=== PATIENT | female | born 1980 | race Caucasian/White ===

== ENCOUNTER 2016-08-12 18:25 | Emergency (ER) | payer OTHER ==
[~2016-08-12] VITALS: Ht 167.6 cm; Wt 61.2 kg
[~2016-08-12 18:25] MED LIST: ACET1TAB33 PO; IBUP200C PO; PRED20TA PO; SULF1TAB24 PO; TRAM50TA PO; imitrex
--- NOTE | 2016-08-12 18:27 | ED.ADGEN ---
Past History Past Medical History: Migraines Past Surgical History: Cholecystectomy, Tonsillectomy, Tubal ligation Smoking: Non-smoker Alcohol Use: None Drug Use: None Adult General Chief Complaint Chief Complaint " I hurting here on my Rt. side.. and around my umbilicus... and some discomfort here on Lt...." HPI HPI Patient is a 36 year old female who presents with above hx and complaints. No history of bad food. No history of travel. No history of trauma. Patient normally healthy. Patient has passed stool today.. Patient denies risks for STD or . No vaginal discharge. Nothing make her discomfort better. Review of Systems Review of Systems Constitutional: Denies fever or chills [] Eyes: Denies change in visual acuity, redness, or eye pain [] HENT: Denies nasal congestion or sore throat [] Respiratory: Denies cough or shortness of breath [] Cardiovascular: No additional information not addressed in HPI [] GI: Complaints of abdominal pain, nausea,. Denies vomiting, bloody stools or diarrhea [] : Denies dysuria or hematuria [] Musculoskeletal: Denies back pain or joint pain [] Integument: Denies rash or skin lesions [] Neurologic: Denies headache, focal weakness or sensory changes [] Endocrine: Denies polyuria or polydipsia [] Family History Family History Non-contributory Current Medications Current Medications Current Medications Medications (Trade) Dose Ordered Sig/Kade Start Time Stop Time Status Last Admin Dose Admin Ceftriaxone Sodium 1 gm/ Sodium Chloride 50 ml @ 100 mls/hr 1X ONCE 08/12/16 21:45 08/12/16 22:14 DC 08/12/16 21:45 100 MLS/HR Ceftriaxone Sodium (Rocephin) 1 gm STK-MED ONCE 08/12/16 21:48 08/12/16 21:49 DC Famotidine (Pepcid) 20 mg 1X ONCE 08/12/16 20:15 08/12/16 20:16 DC 08/12/16 20:10 20 MG Iohexol (Omnipaque 240 Mg/ml) 30 ml 1X ONCE 08/12/16 20:30 08/12/16 20:31 DC 08/12/16 21:37 30 ML Iohexol (Omnipaque 300 Mg/ml) 75 ml 1X ONCE 08/12/16 20:30 08/12/16 20:31 DC 08/12/16 21:37 75 ML Ketorolac Tromethamine (Toradol) 30 mg 1X ONCE 08/12/16 22:45 08/12/16 22:46 DC 08/12/16 22:45 30 MG Lactated Ringer's (Iv Lactated Ringers) 1,000 ml @ 1,000 mls/hr Q1H 08/12/16 20:15 08/12/16 20:50 1,000 MLS/HR Magnesium Citrate (Citroma) 296 ml 1X ONCE 08/12/16 22:45 08/12/16 22:46 DC 08/12/16 22:45 296 ML Metronidazole 100 ml @ 200 mls/hr 1X ONCE 08/12/16 22:00 08/12/16 22:29 DC 08/12/16 22:00 200 MLS/HR Morphine Sulfate (Morphine 10mg Syringe) 10 mg 1X ONCE 08/12/16 20:15 08/12/16 20:16 DC 08/12/16 20:09 10 MG Morphine Sulfate 10 mg 10 mg 1X ONCE 08/12/16 21:45 08/12/16 21:46 DC 08/12/16 21:44 10 MG Ondansetron HCl (Zofran) 8 mg 1X ONCE 08/12/16 20:15 08/12/16 20:16 DC 08/12/16 20:10 8 MG Sodium Chloride (Iv Sodium Chloride 0.9% 50ml) 50 ml @ As Directed STK-MED ONCE 08/12/16 21:48 08/12/16 21:49 DC See Nursing for home meds Allergies Allergies Allergies Coded Allergies Type Severity Reaction Last Updated Verified No Known Drug Allergies 08/08/14 No Physical Exam Physical Exam Constitutional: ,mild to moderate distress, non-toxic appearance. [] HENT: Normocephalic, atraumatic, bilateral external ears normal, oropharynx moist, no oral exudates, nose normal. [] Eyes: PERRLA, EOMI, conjunctiva normal, no discharge. [] Neck: Normal range of motion, no tenderness, supple, no stridor. [] Cardiovascular:Heart rate regular rhythm, no murmur [] Lungs & Thorax: Bilateral breath sounds clear to auscultation [] Abdomen: Bowel sounds decreased, soft, tita umbilical tenderness, no masses, no pulsatile masses. Distended. Pt. declined rectal and pelvic exam at this time. No true rebound. Old surgery scars. Skin: Warm, dry, no erythema, no rash. [] Back: No tenderness, no CVA tenderness. [] Extremities: No tenderness, no cyanosis, no clubbing, ROM intact, no edema. [] No psoas or heel tap. Neurologic: Alert and oriented X 3, normal motor function, normal sensory function, no focal deficits noted. [] Psychologic: Affect anxious, l, judgement normal, mood normal. [] Current Patient Data Vital Signs Vital Signs Date Time Temp Pulse Resp B/P Pulse Ox O2 Delivery O2 Flow Rate FiO2 08/12/16 21:45 90 20 132/82 98 08/12/16 21:44 Room Air 08/12/16 18:28 99.1 Lab Results Laboratory Tests Test 08/12/16 19:35 08/12/16 20:13 08/12/16 21:34 White Blood Count 8.6x10^3/uL (4.0-11.0) Red Blood Count 4.13x10^6/uL (3.50-5.40) Hemoglobin 12.3g/dL (12.0-15.5) Hematocrit 37.2% (36.0-47.0) Mean Corpuscular Volume 90fL (79-100) Mean Corpuscular Hemoglobin 30pg (25-35) Mean Corpuscular Hemoglobin Concent 33g/dL (31-37) Red Cell Distribution Width 12.5% (11.5-14.5) Platelet Count 228x10^3/uL (140-400) Neutrophils (%) (Auto) 56% (31-73) Lymphocytes (%) (Auto) 36% (24-48) Monocytes (%) (Auto) 6% (0-9) Eosinophils (%) (Auto) 2% (0-3) Basophils (%) (Auto) 1% (0-3) Neutrophils # (Auto) 4.8x10^3uL (1.8-7.7) Lymphocytes # (Auto) 3.1x10^3/uL (1.0-4.8) Monocytes # (Auto) 0.5x10^3/uL (0.0-1.1) Eosinophils # (Auto) 0.2x10^3/uL (0.0-0.7) Basophils # (Auto) 0.1x10^3/uL (0.0-0.2) Maternal Serum HCG Beta Subunit 1mIU/mL (0-6) Sodium Level 139mmol/L (136-145) Potassium Level 3.7mmol/L (3.5-5.1) Chloride Level 103mmol/L (98-107) Carbon Dioxide Level 29mmol/L (21-32) Anion Gap 7 (6-14) Blood Urea Nitrogen 12mg/dL (7-20) Creatinine 0.9mg/dL (0.6-1.0) Estimated GFR (Cockcroft-Gault) 70.1 Glucose Level 107mg/dL (70-99) H Calcium Level 9.6mg/dL (8.5-10.1) Total Bilirubin 0.5mg/dL (0.2-1.0) Direct Bilirubin 0.1mg/dL (0.0-0.2) Aspartate Amino Transferase (AST) 10U/L (15-37) L Alanine Aminotransferase (ALT) 15U/L (14-59) Alkaline Phosphatase 42U/L (46-116) L Total Protein 7.5g/dL (6.4-8.2) Albumin 3.9g/dL (3.4-5.0) Amylase Level 32U/L (25-115) Lipase 109U/L (73-393) Urine Collection Type Unknown Urine Color Yellow Urine Clarity Hazy Urine pH 5.0 Urine Specific Alfred 1.025 Urine Protein Neg (NEG-TRACE) Urine Glucose (UA) Negmg/dL (NEG) Urine Ketones (Stick) Tracemg/dL (NEG) Urine Blood Trace (NEG) Urine Nitrite Neg (NEG) Urine Bilirubin Neg (NEG) Urine Urobilinogen Dipstick 0.2mg/dL (0.2 mg/dL) Urine Leukocyte Esterase Trace (NEG) Urine RBC 0/HPF (0-2) Urine WBC 5-10/HPF (0-4) Urine Squamous Epithelial Cells Mod/LPF Urine Bacteria Few/HPF (0-FEW) Urine Yeast Present/HPF Urine Opiates Screen Neg (NEG) Urine Methadone Screen Neg (NEG) Urine Barbiturates Neg (NEG) Urine Phencyclidine Screen Neg (NEG) Urine Amphetamine/Methamphetamine Neg (NEG) Urine Benzodiazepines Screen Neg (NEG) Urine Cocaine Screen Neg (NEG) Urine Cannabinoids Screen Neg (NEG) Urine Ethyl Alcohol Neg (NEG) Prothrombin Time 10.7SEC (9.4-11.4) Prothrombin Time INR 1.0 (0.9-1.1) PTT 25SEC (23-33) EKG EKG [] Radiology/Procedures Radiology/Procedures Interpretation of abdomen film shows scoliosis. No free air under the diaphragm. Calcified nodes. Has stool in rectal vault [] CT shows no acute surgical findings. No significant free fluid or finding s of free air. No findings of inflammation. See formal report. Course & Med Decision Making Course & Med Decision Making Pertinent Labs and Imaging studies reviewed. (See chart for details). Stay on clear fluid diet only x 48 hrs . No solids or milk products. Clear fluids to allow bowel rest. Take Keflex 500 three times a day x 7 day. Then take diflucan 100 x thee days. Re-exam if no improvement. Tylenol and ibuprofen for pain. Expect some diarrhea and passage of stool with Mag. citrate. Follow up all labs and x-rays with primary. [] Final Impression Final Impression 1. Abdomen pain 2. Constipation 3. UTI [] Problems: Dragon Disclaimer Dragon Disclaimer This electronic medical record was generated, in whole or in part, using a voice recognition dictation system. DARIUS LAZO MD Aug 12, 2016 18:27
[2016-08-12] MEDS ORDERED: FAMOTIDINE 20 MG/2 ML VIAL IVP ONE (20:15)
[2016-08-12] MEDS ORDERED: ONDANSETRON PF 4 MG/2 ML VIAL. IV ONE (20:15)
[2016-08-12] MEDS ORDERED: IV RINGERS SOLUTION,LACTATED 1,000 ML IV SCH (20:15)
[2016-08-12] MEDS ORDERED: MORPHINE SULFATE 10 MG/ML SYRINGE. SQ ONE ×2 (20:15→21:45)
[2016-08-12 20:29] LABS: BASO # 0.1 x10^3/uL (0.0-0.2); BASO % 1 % (0-3); EOS # 0.2 x10^3/uL (0.0-0.7); EOS % 2 % (0-3); HEMATOCRIT 37.2 % (36.0-47.0); HEMOGLOBIN 12.3 g/dL (12.0-15.5); LYMPH # 3.1 x10^3/uL (1.0-4.8); LYMPH % 36 % (24-48); MEAN CORPUSCULAR HEMOGLOBIN 30 pg (25-35); MEAN CORPUSCULAR HGB CONC 33 g/dL (31-37); MEAN CORPUSCULAR VOLUME 90 fL (79-100); MONO # 0.5 x10^3/uL (0.0-1.1); MONO % 6 % (0-9); NEUT # 4.8 x10^3uL (1.8-7.7); NEUT % 56 % (31-73); PLATELET COUNT 228 x10^3/uL (140-400); RED BLOOD COUNT 4.13 x10^6/uL (3.50-5.40); RED CELL DISTRIBUTION WIDTH 12.5 % (11.5-14.5); WHITE BLOOD COUNT 8.6 x10^3/uL (4.0-11.0)
[2016-08-12] MEDS ORDERED: IOHEXOL 300 MG/ML 75 ML VIAL. IV ONE (20:30)
[2016-08-12] MEDS ORDERED: IOHEXOL 240 MG/ML 50ML VIAL. PO ONE (20:30)
[2016-08-12 20:33] LABS: ALBUMIN 3.9 g/dL (3.4-5.0); CALCIUM 9.6 mg/dL (8.5-10.1); CREATININE 0.9 mg/dL (0.6-1.0); DIRECT BILIRUBIN 0.1 mg/dL (0.0-0.2); GFR 70.1; POTASSIUM 3.7 mmol/L (3.5-5.1); TOTAL BILIRUBIN 0.5 mg/dL (0.2-1.0); TOTAL PROTEIN 7.5 g/dL (6.4-8.2)
[2016-08-12 20:38] LABS: AMPHETAMINE/METHAMPHETAMINE NEG (NEG); BARBITURATES NEG (NEG); BENZODIAZEPINES NEG (NEG); CANNABINOIDS NEG (NEG); COCAINE NEG (NEG); METHADONE NEG (NEG); OPIATES NEG (NEG); PHENCYCLIDINE NEG (NEG)
[2016-08-12 20:46] LABS: BILIRUBIN,URINE NEG (NEG); CLARITY,URINE HAZY; COLOR,URINE YELLOW; GLUCOSE,URINE NEG (NEG); NITRITE,URINE NEG (NEG); UROBILINOGEN,URINE 0.2 mg/dL (0.2 mg/dL)
[2016-08-12 20:47] LABS: RBC,URINE 0 /HPF (0-2)
[2016-08-12 20:50] LABS: BACTERIA,URINE FEW /HPF (0-FEW); SQUAMOUS EPITHELIAL CELL,UR MOD /LPF; YEAST,URINE PRESENT /HPF
[2016-08-12 21:45] VITALS: BP 132/82
[2016-08-12] MEDS ORDERED: CEFTRIAXONE SODIUM 1 GM in IV NORMAL SALINE 50ML 50 ML IV ONE (21:45)
[2016-08-12] MEDS ORDERED: CEFTRIAXONE SODIUM 1 GM VIAL IV ONE (21:48)
[2016-08-12] MEDS ORDERED: IV NORMAL SALINE 50ML 50 ML ONE (21:48)
[2016-08-12] MEDS ORDERED: METRONIDAZOLE 500mg PREMIX 100 ML IV ONE (22:00)
--- NOTE | 2016-08-12 22:07 | RAD ---
PROCEDURE CT abdomen pelvis with intravenous and oral contrast. HISTORY Severe left-sided abdominal pain. TECHNIQUE After administration of oral and intravenous contrast, 75 mL Omnipaque 300, CT of the abdomen and pelvis was performed. Exposure: One or more of the following individualized dose reduction techniques were utilized for this examination: 1. Automated exposure control. 2. Adjustment of the mA and/or kV according to patient size. 3. Use of iterative reconstruction technique. COMPARISON CT abdomen pelvis June 04, 2013. FINDINGS The left hepatic lobe demonstrates a few low density lesions, not adequately characterized on this examination. Spleen, pancreas, and bilateral adrenal glands unremarkable. Gallbladder is absent. Bilateral kidneys enhance symmetrically. No bowel obstruction or inflammation is identified. Appendix is without evidence of inflammation. Urinary bladder is unremarkable. Uterus and adnexa have unremarkable CT appearance. Levoconvex scoliosis of the spine is seen. IMPRESSION No acute abnormality identified in the abdomen or pelvis. Electronically signed by: Lavon Bajwa MD (Aug 12, 2016 22:05:32)
[2016-08-12] MEDS ORDERED: MAGNESIUM CITRATE 296 ML SOLUTION. PO ONE (22:45)
[2016-08-12] MEDS ORDERED: KETOROLAC 30 MG/ML VIAL. IV ONE (22:45)
[2016-08-12] MEDS ORDERED: FLUC100T7 PO (23:02)
[2016-08-12] MEDS ORDERED: ONDA8TAB12 PO (23:02)
[2016-08-12] MEDS ORDERED: CEPH-264 PO (23:02)
--- NOTE | 2016-08-13 07:56 | RAD ---
Indication: Left abdominal pain today. Technique: Abdominal series with PA chest radiograph contains 3 images. No comparison is available. Findings: The lungs are clear. Granulomatous disease is noted. The heart is not enlarged. S-shaped curvature of the thoracic and lumbar spine is noted. There is no free air. There is no dilated small bowel loop or air-fluid level. There is gas in the colon. There are calcified phleboliths. There are clips in the right upper quadrant. There are probably ligation clips in the pelvis. Impression: Nonobstructive bowel gas pattern. Scoliosis.
== END 2016-08-12 23:37 | disposition home or self-care (01) ==
LOC: ER 18:25
DX: K59.00 Constipation, unspecified (principal); R10.33 Periumbilical pain; N39.0 Urinary tract infection, site not specified; G43.909 Migraine, unspecified, not intractable, without status migrainosus; Z90.49 Acquired absence of other specified parts of digestive tract; Z98.51 Tubal ligation status
CPT/HCPCS: 36415; 74022; 74177; 80048; 80076; 81001; 82150; 83690; 84702; 85027; 85610; 85730; 87086; 96361; 96365; 96368; 96372; 96375; 99285; G0481; J0696; J1885; J2270; J2405; J3490; J7120; Q9966; Q9967; S0028

== ENCOUNTER 2016-09-09 13:07 | Emergency (ER) | payer OTHER ==
[~2016-09-09] VITALS: Ht 175.3 cm; Wt 63.5 kg
[~2016-09-09 13:07] MED LIST changes: +CEPH-264 PO; +FLUC100T7 PO; +ONDA8TAB12 PO
[2016-09-09] MEDS ORDERED: PRED20TA PO (14:17)
[2016-09-09] MEDS ORDERED: HYDR-971 PO (14:17)
[2016-09-09] MEDS ORDERED: ALBUTEROL SULFATE 8GM INHALER. INH ONE (14:30)
[2016-09-09] MEDS ORDERED: DIPHTH,PERTUSS(ACELL),TET TOX 0.5 ML DISP.SYRIN. VAX IM ONE (14:30)
[2016-09-09] MEDS ORDERED: PREDNISONE 20 MG TABLET PO ONE (14:30)
[2016-09-09 15:02] VITALS: BP 127/77
--- NOTE | 2016-09-09 15:35 | ED.ADGEN ---
Past History Past Medical History: No Pertinent History Past Surgical History: Cholecystectomy, Tonsillectomy, Other Smoking: Non-smoker Alcohol Use: Rarely Drug Use: None Adult General HPI HPI Patient is a 36-year-old female presents emergency department complaining of a burn to her left ankle that occurred 1.5 weeks ago after she fell asleep on top of a heating pad. She has been using antibiotic ointment to keep it covered. She comes in today because she keeps banging it into items at work causing significant pain. She also notes that she had a cough for the last 1 week that has been nonproductive. She denies any associated fever, chills, nausea, vomiting. Review of Systems Review of Systems Constitutional: Denies fever or chills [] Eyes: Denies change in visual acuity, redness, or eye pain [] HENT: Denies nasal congestion or sore throat [] Respiratory: Denies cough or shortness of breath [] Cardiovascular: No additional information not addressed in HPI [] GI: Denies abdominal pain, nausea, vomiting, bloody stools or diarrhea [] : Denies dysuria or hematuria [] Musculoskeletal: Denies back pain or joint pain [] Integument: Denies rash or skin lesions [] Neurologic: Denies headache, focal weakness or sensory changes [] Endocrine: Denies polyuria or polydipsia [] Current Medications Current Medications Current Medications Medications (Trade) Dose Ordered Sig/Kade Start Time Stop Time Status Last Admin Dose Admin Albuterol Sulfate (Ventolin Hfa) 2 puff 1X ONCE 09/09/16 14:30 09/09/16 14:31 DC Diphtheria/ Tetanus/Acell Pertussis (Boostrix) 0.5 ml ONCE ONCE 09/09/16 14:30 09/09/16 14:31 DC Prednisone (Prednisone) 60 mg 1X ONCE 09/09/16 14:30 09/09/16 14:31 DC Allergies Allergies Allergies Coded Allergies Type Severity Reaction Last Updated Verified No Known Drug Allergies 08/08/14 No Physical Exam Physical Exam Constitutional: Well developed, well nourished, no acute distress, non-toxic appearance. [] HENT: Normocephalic, atraumatic, bilateral external ears normal, oropharynx moist, no oral exudates, nose normal. [] Eyes: PERRLA, EOMI, conjunctiva normal, no discharge. [] Neck: Normal range of motion, no tenderness, supple, no stridor. [] Cardiovascular:Heart rate regular rhythm, no murmur [] Lungs & Thorax: Bilateral breath sounds with scattered wheezes Abdomen: Bowel sounds normal, soft, no tenderness, no masses, no pulsatile masses. [] Skin: Warm, dry, no erythema, no rash, 3x3 cm of well healing partial thickness burn without signs of infection. [] Extremities: No tenderness, no cyanosis, no clubbing, ROM intact, no edema. [] Neurologic: Alert and oriented X 3, normal motor function, normal sensory function, no focal deficits noted. [] Psychologic: Affect normal, judgement normal, mood normal. [] Current Patient Data Vital Signs Vital Signs Date Time Temp Pulse Resp B/P Pulse Ox O2 Delivery O2 Flow Rate FiO2 09/09/16 15:02 99.0 85 16 98 Room Air EKG EKG [] Radiology/Procedures Radiology/Procedures [] Course & Med Decision Making Course & Med Decision Making Pertinent Labs and Imaging studies reviewed. (See chart for details) Patient was given supportive care and follow-up instructions. While she was here we also did give her an MDI inhaler as well as a prescription for prednisone and [place]. [] Final Impression Final Impression Partial thickness burn, bronchitis [] Problems: Dragon Disclaimer Dragon Disclaimer This electronic medical record was generated, in whole or in part, using a voice recognition dictation system. CORTNEY FULLER MD Sep 09, 2016 15:34
== END 2016-09-09 15:05 | disposition home or self-care (01) ==
LOC: ER 13:07
DX: T25.012A Burn of unspecified degree of left ankle, initial encounter (principal); J40 Bronchitis, not specified as acute or chronic; X16.XXXA Contact with hot heating appliances, radiators and pipes, initial encounter; Y93.89 Activity, other specified; Y99.8 Other external cause status; Y92.89 Other specified places as the place of occurrence of the external cause
CPT/HCPCS: 94640; 99283; J7613; 94664

== ENCOUNTER → 2017-01-01 | Outpatient (CLI) | payer OTHER ==
[~2017-01-01] MED LIST changes: +HYDR-971 PO; -IBUP200C PO; +IBUP200C6 PO
--- NOTE | 2017-01-01 15:52 | RAD ---
DATE: 01/01/2017 EXAM: BREAST RIGHT, DIGITAL DIAGNOSTIC BILATERAL HISTORY: Palpable right breast lump. COMPARISON: Bilateral breast ultrasound 10/31/2013, bilateral diagnostic mammogram 11/30/2013. The breast parenchyma extremely dense. FINDINGS: Bilateral diagnostic mammogram: Bilateral digital 2-D CC and MLO views of both breasts and full-field ML and XCCL views of the right breast views. Breast density is extremely dense limiting evaluation. There are bilateral biopsy clips. No suspicious mass, calcification or architectural distortion. Patient will proceed to diagnostic right breast ultrasound in the area of palpable concern. Right breast ultrasound: In the area of palpable interest in 8:00 4 cm from the nipple, there are multiple cystic structures, the largest measuring 1.3 x 0.7 x 1.9 cm with a few thin internal septations and no internal blood flow. Immediately adjacent at 8:00 position 4 cm from the nipple there is an additional small cyst measuring up to 0.4 cm. No suspicious mass at the area of interest. IMPRESSION: In the area of palpable interest in the right breast 8:00 position 4 cm from the nipple, benign appearing cysts. BI-RADS CATEGORY: 2 BENIGN FINDING(S) RECOMMENDED FOLLOW-UP: CLIN FOLLOW UP IMAGING CLINICALLY INDICATED PQRS compliance statement: Patient information was entered into a reminder system with a target due date January 2019 for the next mammogram. Mammography is a sensitive method for finding small breast cancers, but it does not detect them all and is not a substitute for careful clinical examination. A negative mammogram does not negate a clinically suspicious finding and should not result in delay in biopsying a clinically suspicious abnormality. "Our facility is accredited by the [employer] Mammography Program."
== END | disposition home or self-care (01) ==
LOC: MAMMO 12:18
PROVIDERS: ATTEND Nurse Practitioner Family
DX: N63 Unspecified lump in breast (principal)
CPT/HCPCS: 76641; G0204; 77066

== ENCOUNTER 2017-06-08 07:38 | Emergency (ER) | payer OTHER ==
[~2017-06-08] VITALS: Ht 175.3 cm; Wt 61.2 kg
[2017-06-08 07:43] VITALS: BP 147/80
[2017-06-08] MEDS ORDERED: IV NORMAL SALINE 1,000ML 1,000 ML IV SCH (08:01)
[2017-06-08] MEDS ORDERED: IOHEXOL 240 MG/ML 50ML VIAL. ONE (08:07)
--- NOTE | 2017-06-08 08:07 | PHYS DOC ---
General Chief Complaint: ABDOMINAL PAIN Stated Complaint: UR ABDOM PAIN Time Seen by MD: 07:48 Source: patient Exam Limitations: no limitations Problems: History of Present Illness Initial Comments Patient is a 37-year-old female who comes in the department complaining of abdominal pain. Patient states that beginning last evening she developed right lower quadrant abdominal discomfort. She was not hungry and skipped dinner, her last reported by mouth intake is 1500 yesterday. She denies travel or exotic or" bad food, she states that the pain has worsened throughout the evening and describes that as sharp and stabbing the, severe, she says that she could feel it hitting bumps in the car on the way to the emergency department. No bowel changes last bowel movement was this morning described as normal. No fever or myalgias, no symptoms with urination. Patient takes Percocet chronically for knee pain, she is currently out of that medication. She says that hydrocodone and tramadol cause migraines and she can only take Percocet. Patient follows at [facility] and her ED vital signs are stable, she does not appear to be in any apparent distress. Timing/Duration: 24 hours Severity: moderate Modifying Factors: improves with other Associated Symptoms: other Allergies: Coded Allergies: No Known Drug Allergies (Unverified , 08/08/14) Past Medical History Medical History: other (chronic knee pain, ovarian cysts, peptic ulcer disease) Surgical History: cholecystectomy Social History Smoker: non-smoker Alcohol: none Drugs: none Review of Systems Constitutional: denies chills, denies diaphoresis, denies fever, denies malaise Respiratory: denies cough, denies shortness of breath Cardiovascular: denies chest pain, denies palpitations Gastrointestinal: see HPI, denies constipation, denies diarrhea, denies nausea , denies vomiting Genitourinary: denies discharge, denies dysuria, denies frequency, denies hematuria Musculoskeletal: see HPI, denies back pain, denies neck pain Psychiatric/Neurological: denies headache, denies numbness, denies paresthesia Physical Exam General Appearance: WD/WN, no apparent distress Ear, Nose, Throat: hearing grossly normal, normal ENT inspection, normal pharynx Neck: non-tender, supple Respiratory: normal breath sounds, no respiratory distress Cardiovascular: normal peripheral pulses, regular rate, rhythm Gastrointestinal: soft (nondistended, right lower quadrant tenderness without rebound guarding or palpable mass, bowel sounds are normal no epigastric or bilateral upper quadrant tenderness) Back: no CVA tenderness, no vertebral tenderness Extremities: non-tender, normal inspection 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 PHYSICIAN: LEVON CARPENTER DO REASON: RLQ pain, anorexia PROCEDURE: CT ABD PELV W/ORAL&IV CONTRAST CT scan of the abdomen with IV contrast: History: 2 days of right lower quadrant pain. Comparison:August 12, 2016. Procedure: Contiguous axial images of the abdomen and pelvis were performed after the administration of 75 cc of Omni 300 IV contrast and oral contrast. Findings: Liver: Prior cholecystectomy was seen previously. Minimally dilated intrahepatic biliary tree was seen previously. This also a tiny cyst in the left lobe of the liver. Spleen: Unremarkable. Pancreas: Unremarkable. Adrenal Glands: Unremarkable. Right Kidney: Unremarkable. Left Kidney: Unremarkable. Aorta: Normal. There is no mass or lymphadenopathy. There is no free air. There is no free fluid. CT of pelvis with contrast: The uterus appears within normal limits. The multiple follicles in the ovaries. The appendix is not well identified. There is a small amount of dense fluid posteriorly in the cul-de-sac on the right. Impression: Small amount of fluid in the cul-de-sac could be from a ruptured ovarian cyst. This assumes the patient is not . DICTATED AND SIGNED BY: ALYSSIA COHN III, MD DATE: 06/08/1731 CC: KAYLEIGH ANGLIN DO; LEVON CARPENTER DO ~ Departure Time of Disposition: 09:48 Disposition: 01 HOME, SELF-CARE Diagnosis: abdominal pain nonspecific Condition: GOOD Patient Instructions: Abdominal Pain (Nonspecific) Additional Instructions: Activity as tolerated today. Clear liquids, advance slowly as tolerated. [id number] Tylenol and ibuprofen as needed. Prescription: Dicyclomine, Zofran ODT Follow-up with your doctor on [facility] this week as needed. Return to ED with new or changing symptoms. LEVON CARPENTER DO Jun 08, 2017 08:07
[2017-06-08] MEDS ORDERED: MORPHINE SULFATE 4 MG/ML DISP.SYRIN. IV/SQ PRN (08:15)
[2017-06-08] MEDS ORDERED: IOHEXOL 300 MG/ML 75 ML VIAL. IV ONE (08:30)
[2017-06-08] MEDS ORDERED: ONDANSETRON PF 4 MG/2 ML VIAL. IV ONE (08:30)
[2017-06-08 08:47] LABS: BASO # 0.1 x10^3/uL (0.0-0.2); BASO % 1 % (0-3); EOS # 0.1 x10^3/uL (0.0-0.7); EOS % 3 % (0-3); HEMATOCRIT 42.9 % (36.0-47.0); HEMOGLOBIN 14.3 g/dL (12.0-15.5); LYMPH # 1.9 x10^3/uL (1.0-4.8); LYMPH % 33 % (24-48); MEAN CORPUSCULAR HEMOGLOBIN 30 pg (25-35); MEAN CORPUSCULAR HGB CONC 33 g/dL (31-37); MEAN CORPUSCULAR VOLUME 91 fL (79-100); MONO # 0.5 x10^3/uL (0.0-1.1); MONO % 8 % (0-9); NEUT # 3.2 x10^3uL (1.8-7.7); NEUT % 55 % (31-73); PLATELET COUNT 208 x10^3/uL (140-400); RED BLOOD COUNT 4.71 x10^6/uL (3.50-5.40); RED CELL DISTRIBUTION WIDTH 13.1 % (11.5-14.5); WHITE BLOOD COUNT 5.8 x10^3/uL (4.0-11.0)
[2017-06-08 08:59] LABS: ALBUMIN 4.1 g/dL (3.4-5.0); ALBUMIN/GLOBULIN RATIO 1.2 (1.0-1.7); CALCIUM 9.4 mg/dL (8.5-10.1); CREATININE 0.9 mg/dL (0.6-1.0); GFR 69.7; POTASSIUM 4.7 mmol/L (3.5-5.1); TOTAL BILIRUBIN 0.9 mg/dL (0.2-1.0); TOTAL PROTEIN 7.6 g/dL (6.4-8.2)
[2017-06-08 09:08] LABS: BILIRUBIN,URINE SMALL (NEG); CLARITY,URINE CLEAR; COLOR,URINE AMBER; GLUCOSE,URINE NEG (NEG); NITRITE,URINE NEG (NEG); RBC,URINE OCC /HPF (0-2); UROBILINOGEN,URINE 0.2 mg/dL (0.2 mg/dL); WBC,URINE OCC /HPF (0-4)
[2017-06-08 09:09] LABS: BARBITURATES NEG (NEG); BENZODIAZEPINES NEG (NEG); CANNABINOIDS NEG (NEG); COCAINE NEG (NEG); METHADONE NEG (NEG); OPIATES NEG (NEG); PHENCYCLIDINE NEG (NEG)
[2017-06-08 09:09] LABS: BACTERIA,URINE FEW /HPF (0-FEW); SQUAMOUS EPITHELIAL CELL,UR FEW /LPF; YEAST,URINE PRESENT /HPF
[2017-06-08 09:10] LABS: AMPHETAMINE/METHAMPHETAMINE NEG (NEG)
--- NOTE | 2017-06-08 09:41 | RAD ---
CT scan of the abdomen with IV contrast: History: 2 days of right lower quadrant pain. Comparison:August 12, 2016. Procedure: Contiguous axial images of the abdomen and pelvis were performed after the administration of 75 cc of Omni 300 IV contrast and oral contrast. Findings: Liver: Prior cholecystectomy was seen previously. Minimally dilated intrahepatic biliary tree was seen previously. This also a tiny cyst in the left lobe of the liver. Spleen: Unremarkable. Pancreas: Unremarkable. Adrenal Glands: Unremarkable. Right Kidney: Unremarkable. Left Kidney: Unremarkable. Aorta: Normal. There is no mass or lymphadenopathy. There is no free air. There is no free fluid. CT of pelvis with contrast: The uterus appears within normal limits. The multiple follicles in the ovaries. The appendix is not well identified. There is a small amount of dense fluid posteriorly in the cul-de-sac on the right. Impression: Small amount of fluid in the cul-de-sac could be from a ruptured ovarian cyst. This assumes the patient is not .
[2017-06-08] MEDS ORDERED: DICY20TA3 PO (09:48)
[2017-06-08] MEDS ORDERED: ONDA4TAB10 PO (09:48)
== END 2017-06-08 10:10 | disposition home or self-care (01) ==
LOC: ER 07:38
DX: R10.31 Right lower quadrant pain (principal); G89.29 Other chronic pain; Z87.11 Personal history of peptic ulcer disease; Z90.49 Acquired absence of other specified parts of digestive tract
CPT/HCPCS: 36415; 74177; 80053; 80307; 81001; 81025; 83690; 85025; 96361; 96374; 96375; 99285; J2270; J2405; Q9967; G0479; J7030

== ENCOUNTER 2017-12-13 12:32 | Emergency (ER) | payer OTHER ==
[~2017-12-13] VITALS: Ht 175.3 cm; Wt 60.3 kg
[~2017-12-13 12:32] MED LIST changes: +DICY20TA3 PO; +IBUP-1390 PO; -IBUP200C6 PO; +ONDA4TAB10 PO
[2017-12-13 13:00] VITALS: BP 140/73
[2017-12-13] MEDS ORDERED: KETOROLAC 60 MG/2 ML VIAL. IM ONE (13:30)
[2017-12-13] MEDS ORDERED: CYCL-331 PO (13:38)
[2017-12-13] MEDS ORDERED: OXYC-323 PO (13:38)
--- NOTE | 2017-12-13 13:38 | PHYS DOC ---
Past History Past Medical History: Other Additional Past Medical Histor: chronic pain Past Surgical History: Cholecystectomy, Tonsillectomy, Tubal ligation Smoking: Non-smoker Alcohol Use: Rarely Drug Use: None Adult General Chief Complaint Chief Complaint: LOWER EXT PAIN [facility] HPI 37-year-old female patient with history of chronic knee pain on Percocet states she went to [place] 4 days ago and had some bumpy rides and since yesterday has had pain in her neck, upper extremity, back and almost all over that gradually getting worse as a sharp pain and rated her pain 8/10. Patient denies focal neuro deficit, fever and chills, headache, nausea and vomiting, patient states states she usually gets Percocet twice a day but ran out of her medication for 5 days ago and unable to see her physician until of this month. Review of Systems Review of Systems Constitutional: Denies fever or chills [] Eyes: Denies change in visual acuity, redness, or eye pain [] HENT: Denies nasal congestion or sore throat [] Respiratory: Denies cough or shortness of breath [] Cardiovascular: No additional information not addressed in HPI [] GI: Denies abdominal pain, nausea, vomiting, bloody stools or diarrhea [] : Denies dysuria or hematuria [] Musculoskeletal: Reports myalgia, back pain, joint pain Integument: Denies rash or skin lesions [] Neurologic: Denies headache, focal weakness or sensory changes [] Endocrine: Denies polyuria or polydipsia [] All other systems were reviewed and found to be within normal limits, except as documented in this note. Current Medications Current Medications Current Medications Medications (Trade) Dose Ordered Sig/[facility] Start Time Stop Time Status Last Admin Dose Admin Ketorolac Tromethamine (Toradol) 60 mg 1X ONCE 12/13/17 13:30 12/13/17 13:31 Allergies Allergies Allergies Coded Allergies Type Severity Reaction Last Updated Verified hydrocodone Allergy Unknown 12/13/17 Yes tramadol Allergy Unknown 12/13/17 Yes Physical Exam Physical Exam Constitutional: Well developed, well nourished, mild distress, non-toxic appearance. [] HENT: Normocephalic, atraumatic, bilateral external ears normal, oropharynx moist, no oral exudates, nose normal. [] Eyes: PERRLA, EOMI, conjunctiva normal, no discharge. [] Neck: Normal range of motion, no tenderness, supple, no stridor, no surgical rigidity. [] Cardiovascular:Heart rate regular rhythm, no murmur [] Lungs & Thorax: Bilateral breath sounds clear to auscultation [] Abdomen: Bowel sounds normal, soft, no tenderness, no masses, no pulsatile masses. [] Skin: Warm, dry, no erythema, no rash. [] Back: No tenderness, no CVA tenderness. [] Extremities: No tenderness, no cyanosis, no clubbing, ROM intact, no edema. [] Neurologic: Alert and oriented X 3, normal motor function, normal sensory function, no focal deficits noted. [] Psychologic: Affect normal, judgement normal, mood normal. [] Current Patient Data Vital Signs Vital Signs Date Time Temp Pulse Resp B/P (MAP) Pulse Ox O2 Delivery O2 Flow Rate FiO2 12/13/17 13:00 98.3 71 20 98 Room Air EKG EKG [] Radiology/Procedures Radiology/Procedures [] Course & Med Decision Making Course & Med Decision Making Evaluation of patient in ER showed 37-year-old female patient with history of chronic back pain with increasing pain after sport activity. Patient had unremarkable physical exam of admitted with Toradol. Patient ran out of her chronic Percocet and plan to give few Percocet and recommendation to follow with her primary care physician in 2 days. Prescription for Percocet and Flexeril was given. Dragon Disclaimer Dragon Disclaimer This electronic medical record was generated, in whole or in part, using a voice recognition dictation system. Departure Departure: Impression: Primary Impression: Myalgia Additional Impression: Prescription refill Disposition: 01 HOME, SELF-CARE (at 1335) Condition: IMPROVED Referrals: KAYLEIGH ANGLIN DO (PCP) Patient Instructions: Medication Refill, Emergency Department, Myalgia, Adult Additional Instructions: Drink plenty of liquids Follow-up with your primary care physician in 2-3 days Return to ER if not getting better Apply ice on the affected area Scripts Oxycodone Hcl/Acetaminophen (PERCOCET 5-325 MG TABLET) 1 Each Tablet 1 TAB PO QID, #10 TAB Prov: BECKY MELARA MD 12/13/17 Cyclobenzaprine Hcl (CYCLOBENZAPRINE HCL) 10 Mg Tablet 1 TAB PO TID, #30 TAB Prov: BECKY MELARA MD 12/13/17 Problem Qualifiers BECKY MELARA MD Dec 13, 2017 13:38
== END 2017-12-13 13:44 | disposition home or self-care (01) ==
LOC: ER 12:32
DX: M79.1 Myalgia (principal); G89.29 Other chronic pain; Z76.0 Encounter for issue of repeat prescription; Z88.5 Allergy status to narcotic agent; Z88.6 Allergy status to analgesic agent
CPT/HCPCS: 96372; 99283; J1885

== ENCOUNTER 2018-06-05 06:55 | Emergency (ER) | payer OTHER ==
[~2018-06-05] VITALS: Ht 175.3 cm; Wt 58.1 kg
[~2018-06-05 06:55] MED LIST changes: +CYCL-331 PO; +HYDR-3165 PO; -HYDR-971 PO; +OXYC1TAB15 PO
[2018-06-05] MEDS ORDERED: ORPH-16 PO (07:35)
[2018-06-05] MEDS ORDERED: PRED20TA PO (07:35)
[2018-06-05] MEDS ORDERED: LIDO700A39 TP (07:35)
--- NOTE | 2018-06-05 07:35 | PHYS DOC ---
Past History Past Medical History: Migraines, Other Additional Past Medical Histor: chronic pain Past Surgical History: Cholecystectomy, Tonsillectomy, Tubal ligation Smoking: Non-smoker Alcohol Use: Rarely Drug Use: None Adult General Chief Complaint Chief Complaint: BACK PAIN - NO INJURY HPI HPI 38-year-old female presents with one-week history of low back pain. Patient denies loss of bowel or bladder. Denies known trauma. Denies dysuria or hematuria. Denies nausea or vomiting. Denies rash. Reports last menstrual period 2 weeks ago. Denies . Patient unsure how she might have injured her back. Reports some radiation to her buttocks. Reports pain worse with movement. Patient also reports increased anxiety. Reports her significant other recently . She has been having problems dealing with the . Reports is Friday. Denies suicidal or homicidal ideation. Review of Systems Review of Systems Constitutional: Denies fever or chills [ HENT: Denies nasal congestion or sore throat [] Respiratory: Denies cough or shortness of breath [] Cardiovascular: Denies chest pain or palpitations GI: Denies abdominal pain, nausea, vomiting, or diarrhea [] : Denies dysuria or hematuria [] Musculoskeletal: Reports back pain; denies joint pain [] Integument: Denies rash or skin lesions [] Neurologic: Denies headache, focal weakness or sensory changes Psychiatric: Reports anxiety; denies suicidal or homicidal ideation [] Complete systems were reviewed and found to be within normal limits, except as documented in this note. Allergies Allergies Allergies Coded Allergies Type Severity Reaction Last Updated Verified hydrocodone Allergy Unknown 12/13/17 Yes tramadol Allergy Unknown 12/13/17 Yes Physical Exam Physical Exam Constitutional: Well developed, well nourished, no acute distress, non-toxic appearance. [] HENT: Normocephalic, atraumatic Eyes: Conjunctiva normal, no discharge. [] Neck: Normal range of motion, no tenderness, supple Cardiovascular: Heart rate regular rhythm, no murmur [] Lungs & Thorax: Bilateral breath sounds clear to auscultation [] Abdomen: Soft, no tenderness Skin: Warm, dry, no erythema, no rash. [] Back: No midline tenderness, no CVA tenderness, tenderness noted bilaterally to paraspinal lumbar musculature. Extremities: No deformity, ROM intact, no edema, mild pain with straight leg raise bilaterally. Neurologic: Alert and oriented X 3, normal motor function, normal sensory function, no focal deficits noted. [] Psychologic: Patient tearful, judgement normal, denies suicidal or homicidal ideation EKG EKG [] Radiology/Procedures Radiology/Procedures [] Course & Med Decision Making Course & Med Decision Making Patient presents with atraumatic back pain which appears muscular skeletal in nature. No midline spinal tenderness noted. Denies hematuria or dysuria. No CVA tenderness noted. Symptomatic treatment provided with IM ketorolac, IM Norflex, and oral steroid. Patient has prescription for Percocet at home. Patient also given prescription for Lidoderm patches. Patient reports increased anxiety. Denies SI/HI. Rx given for 0.5mg ativan x 6 tabs. Patient stable for discharge with outpatient follow-up with PCP/pain management. Pain management referral provided. Discussed findings and plan with patient, who acknowledges understanding and agreement. Dragon Disclaimer Dragon Disclaimer This electronic medical record was generated, in whole or in part, using a voice recognition dictation system. Departure Departure: Impression: Primary Impression: Back pain Additional Impression: Anxiety Disposition: 01 HOME, SELF-CARE Condition: STABLE Referrals: KAYLEIGH ANGLIN DO (PCP) LOVE NOWAK MD Patient Instructions: Anxiety and Panic Attacks, [id number], Back Pain, Adult , [id number], Sciatica, [id number] Scripts Lorazepam (LORAZEPAM) 0.5 Mg Tablet 1 TAB PO TID PRN for ANXIETY, #6 TAB Prov: CONTRERAS CHUNG DO 06/05/18 Lidocaine (Lidocaine) 1 Each Adh..patch 1 EACH TP Q12HR PRN for PAIN, #6 PATCH Keep each patch on for 12 hours then leave off for 12 hours before replacing new patch. Prov: CONTRERAS CHUNG DO 06/05/18 Orphenadrine Citrate (ORPHENADRINE CITRATE) 100 Mg Tablet.er 1 TAB PO BID PRN for MUSCLE PAIN, #14 TAB 0 Refills Prov: CONTRERAS CHUNG DO 06/05/18 Prednisone (PREDNISONE) 20 Mg Tablet 2 TAB PO DAILY for Back pain, #8 TAB Start this prescription tomorrow 06/06/18 Prov: CONTRERAS CHUNG DO 06/05/18 Problem Qualifiers Primary Impression: Back pain Back pain location: low back pain Chronicity: acute Back pain laterality: bilateral Sciatica presence: with sciatica Sciatica laterality: bilateral sciatica Qualified Codes: M54.42 - Lumbago with sciatica, left side; M54.41 - Lumbago with sciatica, right side CONTRERAS CHUNG DO Jun 05, 2018 07:35
[2018-06-05] MEDS ORDERED: KETOROLAC 30 MG/ML VIAL. IM ONE (08:00)
[2018-06-05] MEDS ORDERED: ORPHENADRINE CITRATE 60 MG/2 ML VIAL. IM ONE (08:00)
[2018-06-05] MEDS ORDERED: DEXAMETHASONE 4 MG TABLET PO ONE (08:00)
[2018-06-05] MEDS ORDERED: LORA0.5T PO (08:15)
[2018-06-05 08:24] VITALS: BP 103/64
== END 2018-06-05 08:26 | disposition home or self-care (01) ==
LOC: ER 06:55
DX: M54.41 Lumbago with sciatica, right side (principal); M54.42 Lumbago with sciatica, left side; F41.9 Anxiety disorder, unspecified; G43.909 Migraine, unspecified, not intractable, without status migrainosus; G89.29 Other chronic pain; Z90.49 Acquired absence of other specified parts of digestive tract; Z98.51 Tubal ligation status; Z88.5 Allergy status to narcotic agent; Z88.6 Allergy status to analgesic agent
CPT/HCPCS: 96372; 99283; J1885; J2360; J8540

== ENCOUNTER 2018-12-14 07:06 | Emergency (ER) | payer OTHER ==
[~2018-12-14] VITALS: Ht 175.3 cm; Wt 52.2 kg
[~2018-12-14 07:06] MED LIST changes: +LIDO700A21 TP; +LORA0.5T PO; +ORPH-16 PO
[2018-12-14 07:19] VITALS: BP 132/87
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
[2018-12-14] MEDS ORDERED: IBUPROFEN 600 MG TABLET. PO ONE (07:50)
--- NOTE | 2018-12-14 07:55 | RAD ---
Indication: Injured at work. Hit lower anterior right burger TECHNIQUE: 2 views of the right tibia and fibula COMPARISON: None Findings/ impression: No acute fracture or dislocation. No soft tissue abnormality. Electronically signed by: César Castro DO (12/14/2018 7:52 AM) [facility]
[2018-12-14] MEDS ORDERED: ACETAMINOPHEN 500 MG TABLET PO ONE (08:15)
== END 2018-12-14 08:02 | disposition home or self-care (01) ==
LOC: ER 07:06
DX: S80.12XA Contusion of left lower leg, initial encounter (principal); G89.29 Other chronic pain; M54.5 Low back pain; Z88.5 Allergy status to narcotic agent; Z88.6 Allergy status to analgesic agent; Z90.49 Acquired absence of other specified parts of digestive tract; Z98.51 Tubal ligation status; W50.1XXA Accidental kick by another person, initial encounter; Y93.89 Activity, other specified; Y92.89 Other specified places as the place of occurrence of the external cause; Y99.8 Other external cause status
CPT/HCPCS: 73590; 99284

== ENCOUNTER 2018-12-27 12:01 | Emergency (ER) | payer OTHER ==
[~2018-12-27] VITALS: Ht 175.3 cm; Wt 54.4 kg
[2018-12-27 12:04] VITALS: BP 123/83
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
== END 2018-12-27 13:42 | disposition home or self-care (01) ==
LOC: ER 12:01
DX: S00.83XA Contusion of other part of head, initial encounter (principal); G89.29 Other chronic pain; Z88.5 Allergy status to narcotic agent; Z88.6 Allergy status to analgesic agent; W22.03XA Walked into furniture, initial encounter; Y93.89 Activity, other specified; Y92.89 Other specified places as the place of occurrence of the external cause; Y99.8 Other external cause status
CPT/HCPCS: 70140; 99284

== ENCOUNTER 2019-03-14 20:06 | Emergency (ER) | payer OTHER ==
[~2019-03-14] VITALS: Ht 175.3 cm; Wt 62.6 kg
--- NOTE | 2019-03-14 20:30 | ED.ADGEN ---
Past History Past Medical History: Anxiety, Arthritis, Migraines, Sciatica, Other Additional Past Medical Histor: chronic back pain, history of scoliosis Past Surgical History: Cholecystectomy, Tonsillectomy, Tubal ligation Smoking: Non-smoker Alcohol Use: None Drug Use: None Adult General Chief Complaint Chief Complaint ".. I am having a flare of my back pain.. I am out of my pain meds.. I ve had back pain ever since.. I was age 6.. I did a lot of gymnastic.. soft ball... I know I ve got scoliosis.. I really hurting tonight.. I am going see a new doc.. Danny Hua this coming week... " [facility] HPI Patient is a 39 year old female who presents with above hx and complaints of back pain.. Pain is localized in the lower half of thoracic and lumbar region.. Has obvious scoliosis. There is some paraspinal muscle spasms.. No history immunosuppression. No history of IV drug use. No history of recent trauma. No history of recent travel or specific contacts. Patient denies any history of cancer. Patient denies any problems with defecation or urination. No recent fever or chills. Patient is ambulatory. Reviewed radiographic findings of evaluation in 2013 showed moderate scoliosis no significant spinal stenosis. Patient recently had a repeat MRI at a [facility] on [facility]. Review of Systems Review of Systems Constitutional: Denies fever or chills [] Eyes: Denies change in visual acuity, redness, or eye pain [] HENT: Denies nasal congestion or sore throat [] Respiratory: Denies cough or shortness of breath [] Cardiovascular: No additional information not addressed in HPI [] GI: Denies abdominal pain, nausea, vomiting, bloody stools or diarrhea [] : Denies dysuria or hematuria [] Musculoskeletal: Complains of exacerbation of her chronic back pain Integument: Denies rash or skin lesions [] Neurologic: Denies headache, focal weakness or sensory changes [] Endocrine: Denies polyuria or polydipsia [] All other systems were reviewed and found to be within normal limits, except as documented in this note. Family History Family History Noncontributory Current Medications Current Medications Current Medications Medications (Trade) Dose Ordered Sig/Kade Start Time Stop Time Status Last Admin Dose Admin Ketorolac Tromethamine (Toradol Im) 60 mg 1X ONCE 03/14/19 22:00 03/14/19 22:01 DC 03/14/19 21:42 60 MG Methylprednisolone Acetate (DEPO-Medrol IM) 40 mg 1X ONCE 03/14/19 22:00 03/14/19 22:01 DC 03/14/19 21:42 40 MG Morphine Sulfate (Morphine 10mg Syringe) 10 mg 1X ONCE 03/14/19 22:00 03/14/19 22:01 DC 03/14/19 21:42 10 MG Orphenadrine Citrate (Norflex) 60 mg 1X ONCE 03/14/19 22:00 03/14/19 22:01 DC 03/14/19 21:42 60 MG See nursing for home medications Allergies Allergies Allergies Coded Allergies Type Severity Reaction Last Updated Verified hydrocodone Adverse Reaction Intermediate Bad migraine 03/14/19 Yes tramadol Adverse Reaction Unknown Bad migraine 03/14/19 Yes Physical Exam Physical Exam Constitutional: Moderate acute distress, non-toxic appearance. [] HENT: Normocephalic, atraumatic, bilateral external ears normal, oropharynx moist, no oral exudates, nose normal. [] Eyes: PERRLA, EOMI, conjunctiva normal, no discharge. [] Neck: Normal range of motion, no tenderness, supple, no stridor. [] Cardiovascular:Heart rate regular rhythm, no murmur [] Lungs & Thorax: Bilateral breath sounds equal at apexes auscultation []Scattered wheezes Abdomen: Bowel sounds normal, soft, no tenderness, no masses, no pulsatile masses. Old surgical scars. No obvious saddle loss. Patient declines rectal exam this time. Skin: Warm, dry, no erythema, has tinea versicolor on her back Back: Some paraspinal muscle spasm and tenderness, T6 down to L5. Obvious scoliosis. No midline tenderness on percussion of vertebral bodies. Has no CVA tenderness. [] Extremities: No tenderness, no cyanosis, no clubbing, ROM intact, no edema. [] Knee scars Neurologic: Alert and oriented X 3, normal motor function, normal sensory function, no focal deficits noted. []DTRs +2 patella and brachial. Does have some mild sciatica findings the on left side attic nerve root with straight leg lift. Psychologic: Affect anxious, judgement normal, mood depressed, tearful Current Patient Data Vital Signs Vital Signs Date Time Temp Pulse Resp B/P (MAP) Pulse Ox O2 Delivery O2 Flow Rate FiO2 03/14/19 21:52 72 16 131/83 (99) 98 Room Air 03/14/19 20:20 98.7 Lab Results Laboratory Tests Test 03/14/19 20:53 03/14/19 20:58 Urine Collection Type Unknown Urine Color Yellow Urine Clarity Hazy Urine pH 7.0 Urine Specific [place]farland 1.020 Urine Protein Neg (NEG-TRACE) Urine Glucose (UA) Neg mg/dL (NEG) Urine Ketones (Stick) Neg mg/dL (NEG) Urine Blood Mod (NEG) Urine Nitrite Neg (NEG) Urine Bilirubin Neg (NEG) Urine Urobilinogen Dipstick 0.2 mg/dL (0.2 mg/dL) Urine Leukocyte Esterase Neg (NEG) Urine RBC 1-2 /HPF (0-2) Urine WBC Occ /HPF (0-4) Urine Squamous Epithelial Cells Occ /LPF Urine Amorphous Sediment Present /HPF Urine Bacteria 0 /HPF (0-FEW) Urine Mucus Slight /LPF Urine Opiates Screen Neg (NEG) Urine Methadone Screen Neg (NEG) Urine Barbiturates Neg (NEG) Urine Phencyclidine Screen Neg (NEG) Urine Amphetamine/Methamphetamine Neg (NEG) Urine Benzodiazepines Screen Neg (NEG) Urine Cocaine Screen Neg (NEG) Urine Cannabinoids Screen Neg (NEG) Urine Ethyl Alcohol Neg (NEG) POC Urine HCG, Qualitative hcg negative (Negative) EKG EKG [] Radiology/Procedures Radiology/Procedures Reviewed findings of previous radiographic findings in 2013- unable to get res ults from the Diagnostic Center on [facility] at this time[] Course & Med Decision Making Course & Med Decision Making Pertinent Labs and Imaging studies reviewed. (See chart for details) Keep follow-up with your primary. Ice packs as needed. Consider physical therapy. If MRI showed significant changes in spine such as impingement or spinal stenosis consider neurosurgery consult. Take Tylenol and ibuprofen for pain. Take Flexeril 5 g 4 times a day. Consider the use of pain patches such as lidocaine or Voltran creams for localized pain relief. Use selenium shampoo, apply to rash, wash off in AM, Repeat 7 day. If min. response oral meds. [] Final Impression Final Impression 1. Exacerbation of chronic back pain 2. Scoliosis[] 3. Tinea versicolor Dragon Disclaimer Dragon Disclaimer This electronic medical record was generated, in whole or in part, using a voice recognition dictation system. Dragon Disclaimer This chart was dictated in whole or in part using Voice Recognition software in a busy, high-work load, and often noisy Emergency Department environment. It may contain unintended and wholly unrecognized errors or omissions. DARIUS LAZO MD Mar 14, 2019 20:30
[2019-03-14 21:20] LABS: BARBITURATES NEG (NEG); BENZODIAZEPINES NEG (NEG); CANNABINOIDS NEG (NEG); COCAINE NEG (NEG); METHADONE NEG (NEG); OPIATES NEG (NEG); PHENCYCLIDINE NEG (NEG)
[2019-03-14 21:21] LABS: BILIRUBIN,URINE NEG (NEG); CLARITY,URINE HAZY; COLOR,URINE YELLOW; GLUCOSE,URINE NEG (NEG); NITRITE,URINE NEG (NEG); UROBILINOGEN,URINE 0.2 mg/dL (0.2 mg/dL)
[2019-03-14 21:22] LABS: AMORPHOUS SEDIMENT,UR PRESENT /HPF; BACTERIA,URINE 0 /HPF (0-FEW); SQUAMOUS EPITHELIAL CELL,UR OCC /LPF; WBC,URINE OCC /HPF (0-4)
[2019-03-14 21:25] LABS: AMPHETAMINE/METHAMPHETAMINE NEG (NEG)
[2019-03-14] MEDS ORDERED: CYCL5TAB PO (21:45)
[2019-03-14] MEDS ORDERED: HYDR-1179 PO (21:45)
[2019-03-14] MEDS ORDERED: LIDO700A21 TP (21:45)
[2019-03-14 21:52] VITALS: BP 131/83
[2019-03-14] MEDS ORDERED: KETOROLAC 60 MG/2 ML VIAL. IM ONE (22:00)
[2019-03-14] MEDS ORDERED: methylPREDNISolone ACETATE 40 MG/ML VIAL. IM ONE (22:00)
[2019-03-14] MEDS ORDERED: MORPHINE SULFATE 10 MG/ML SYRINGE. SQ ONE (22:00)
[2019-03-14] MEDS ORDERED: ORPHENADRINE CITRATE 60 MG/2 ML VIAL. IM ONE (22:00)
== END 2019-03-14 22:03 | disposition home or self-care (01) ==
LOC: ER 20:06
DX: G89.29 Other chronic pain (principal); M41.86 Other forms of scoliosis, lumbar region; M41.84 Other forms of scoliosis, thoracic region; B36.0 Pityriasis versicolor; F41.9 Anxiety disorder, unspecified; M19.90 Unspecified osteoarthritis, unspecified site; G43.909 Migraine, unspecified, not intractable, without status migrainosus; Z90.49 Acquired absence of other specified parts of digestive tract; Z98.51 Tubal ligation status; Z88.5 Allergy status to narcotic agent; Z88.6 Allergy status to analgesic agent
CPT/HCPCS: 36415; 80307; 81001; 81025; 96372; 99284; J1030; J1885; J2270; J2360

== ENCOUNTER 2019-03-30 09:18 | Emergency (ER) | payer OTHER ==
[~2019-03-30 09:18] MED LIST changes: +CYCL5TAB PO; +HYDR-1179 PO
--- NOTE | 2019-03-30 09:53 | PHYS DOC ---
General Chief Complaint: BACK PAIN OR INJURY Stated Complaint: BACK PAIN Time Seen by MD: 09:26 Source: patient Exam Limitations: no limitations History of Present Illness Initial Comments Patient is a 39-year-old female with history of chronic back pain who presents with request of refill of pain medication. Patient states she ran out of Percocet one day ago and that her pain management doctor would not refill pain medication. Patient reports diffuse neck and upper and lower mid back pain as well as right knee pain. Patient is scheduled to see a new primary care physician next week. She has also currently participating in physical therapy. Denies new injury or pain complaint. States she's had a recent MRI of her spine has plans to follow-up with orthopedic surgery for her knee and neurosurgery for her back. Previous tubal ligation Timing/Duration: other Severity: moderate Prior Episodes/Possible Cause: frequent episodes, chronic episodes Modifying Factors: improves with activity Associated Symptoms: denies symptoms Allergies: Coded Allergies: hydrocodone (Verified Adverse Reaction, Intermediate, Bad migraine, 03/30/19) Bad migraine tramadol (Verified Adverse Reaction, Unknown, Bad migraine, 03/30/19) Bad migraine Past Medical History Medical History: no pertinent history Surgical History: cholecystectomy Social History Alcohol: sober Review of Systems Constitutional: no symptoms reported EENTM: no symptoms reported Respiratory: no symptoms reported Gastrointestinal: no symptoms reported Genitourinary: no symptoms reported Musculoskeletal: back pain Skin: no symptoms reported Psychiatric/Neurological: no symptoms reported Hematologic/Lymphatic: no symptoms reported Immunological/Allergic: no symptoms reported All Other Systems: Reviewed and Negative Physical Exam General Appearance: mild distress Eyes: bilateral eye normal inspection, bilateral eye PERRL, bilateral eye EOMI Ears, Nose, Throat: normal ENT inspection Neck: non-tender Respiratory: chest non-tender Cardiovascular: normal peripheral pulses Gastrointestinal: normal bowel sounds Extremities: normal range of motion Neurologic/Psychiatric: shaker tender II-XII nml as tested Comments Loss of thoracic kyphosis and straightening of the lumbar spine. Diffuse upper mid and low back pain/tenderness. Orders, Labs, Meds Chronic back pain. I discussed with patient that I was unable to fill narcotic pain medications. She is willing to trial steroids and Flexeril. Recommendation to follow up with her PCP for further management. JUNIOR BAHENA DO Mar 30, 2019 09:53
[2019-03-30] MEDS ORDERED: METH4TAB2 PO (09:55)
[2019-03-30] MEDS ORDERED: CYCL-331 PO (09:55)
[2019-03-30] MEDS ORDERED: ORPHENADRINE CITRATE 60 MG/2 ML VIAL. IM ONE (10:00)
[2019-03-30] MEDS ORDERED: KETOROLAC 60 MG/2 ML VIAL. IM ONE (10:00)
[2019-03-30 10:13] VITALS: BP 124/77
== END 2019-03-30 10:12 | disposition home or self-care (01) ==
LOC: ER 09:18
DX: G89.29 Other chronic pain (principal); M54.5 Low back pain; M54.2 Cervicalgia; M25.561 Pain in right knee; Z98.51 Tubal ligation status; Z90.49 Acquired absence of other specified parts of digestive tract; Z88.5 Allergy status to narcotic agent; Z88.6 Allergy status to analgesic agent
CPT/HCPCS: 96372; 99284; J1885; J2360

== ENCOUNTER 2019-06-02 19:40 | Emergency (ER) | payer OTHER ==
[~2019-06-02] VITALS: Ht 175.3 cm; Wt 65.0 kg
[~2019-06-02 19:40] MED LIST changes: +METH4TAB2 PO
--- NOTE | 2019-06-02 20:04 | PHYS DOC ---
Past History Past Medical History: Anxiety, Arthritis, Migraines, Sciatica, Other Additional Past Medical Histor: chronic back pain, history of scoliosis Past Surgical History: Cholecystectomy, Tonsillectomy, Tubal ligation Smoking: Non-smoker Alcohol Use: None Drug Use: None Adult General Chief Complaint Chief Complaint: HEADACHE.." This is like my regular migraine..s..but I let my Rx. run out that Dr. Schneider had me take for my occasional migraine headaches...."..." I need meds to make this pain completely go away".. HPI HPI Patient is a 39 year old female who presents with above hx and complaints of a migraine headache. Patient has had previous workup for her migraine headaches. Patient advised to previous CTs have been negative. Patient has followed with neurology Dr. Schneider and had used a migraine headache medication but she at the prescription run out. Patient states she has had Imitrex in the past here for her migraine headaches. Patient declines spinal tap or CT this time wants to be treated clinically. Patient did agree to blood draws. No history of fever or chills. No history of travel or specific ill contacts. No history of excessive celebration yesterday on new . Patient does have history of chronic pains syndromes/fibromyalgia. Patient is a in the company of her daughter. No history of recent trauma. Patient denies any illicit drug use. Patient states when her migraines persisted throughout the day she usually needs pain meds in the emergency department. Explained to patient we would not attempt to make her pain to "completely go away "...but could moderate her symptoms. Review of Systems Review of Systems Constitutional: Denies fever or chills [] Eyes: Denies change in visual acuity, redness, or eye pain []. Complains of photophobia HENT: Denies nasal congestion or sore throat [] Respiratory: Denies cough or shortness of breath [] Cardiovascular: No additional information not addressed in HPI [] GI: Denies abdominal pain, , vomiting, bloody stools or diarrhea []. Complaints of nausea : Denies dysuria or hematuria [] Musculoskeletal: Denies back pain or joint pain [] Integument: Denies rash or skin lesions [] Neurologic: Complaints of headache,. Denies focal weakness or sensory changes [] Endocrine: Denies polyuria or polydipsia [] All other systems were reviewed and found to be within normal limits, except as documented in this note. Family History Family History Noncontributory to presentation Current Medications Current Medications See nursing for home medications Allergies Allergies Allergies Coded Allergies Type Severity Reaction Last Updated Verified hydrocodone Adverse Reaction Intermediate Bad migraine 03/30/19 Yes tramadol Adverse Reaction Unknown Bad migraine 03/30/19 Yes Physical Exam Physical Exam Constitutional: Moderate acute distress, non-toxic appearance. [] HENT: Normocephalic, atraumatic, bilateral external ears normal, oropharynx moist, no oral exudates, nose normal. Scalp is tender to palpation. But no tem poral artery tenderness. Blue green hair dye Eyes: PERRLA, EOMI, conjunctiva normal, no discharge. .Wear glasses. . Fundus exam limited but benign in appearance. Does have photophobia to bright light. Myopia. Neck: Normal range of motion, no tenderness, supple, no stridor. [] Cardiovascular:Heart rate regular rhythm, no murmur [] Lungs & Thorax: Bilateral breath sounds equal apexes scattered wheezes on auscultation [] Abdomen: Bowel sounds normal, soft, no tenderness, no masses, no pulsatile masses. [] Old surgical scars Skin: Warm, dry, no erythema, no rash. [] Back: No tenderness, no CVA tenderness. []Patient does complain chronic low back pain and sciatica pain. Does have increased pain with straight leg lift both legs. Extremities: No tenderness, no cyanosis, no clubbing, ROM intact, no edema. [] Neurologic: Alert and oriented X 3, normal motor function, normal sensory function, no focal deficits noted. []DTRs +2 patella and brachial. [employer] equal. Right-hand dominant. No drift. [employer] Resource Project Manager equal. Ambulatory without problems. Psychologic: Affect anxious, judgement normal, mood normal. [] Current Patient Data Vital Signs Vital Signs Date Time Temp Pulse Resp B/P (MAP) Pulse Ox O2 Delivery O2 Flow Rate FiO2 06/02/19 19:53 98.2 84 16 99 Room Air 06/02/19 19:52 160/87 (111) EKG EKG [] Radiology/Procedures Radiology/Procedures Patient refuses CT[] Course & Med Decision Making Course & Med Decision Making Pertinent Labs and Imaging studies reviewed. (See chart for details) Patient do a trial of Imitrex 100 mg at the beginning of her migraine headaches. Recent take no more Imitrex in 200 mg in 24-hour period. Patient take Tylenol and ibuprofen for pain. Zofran 8 mg up 4 times a day for nausea and vomiting. Strongly encouraged patient to follow-up with neurology. Patient to return if an y concerns. Patient was discharged to the care of her daughter. Did explain to the patient risks and benefits of spinal tap. Patient continue refuse spinal tap and CT at this time. Patient return at any time completed further evaluation of her migraine h eadache, or if any concerns. Impression: 1. Migraine Headache 2. History of chronic pain-fibromyalgia 3. History of low back pain and sciatica-chronic 4. History of anxiety [] Dragon Disclaimer Dragon Disclaimer This electronic medical record was generated, in whole or in part, using a voice recognition dictation system. Departure Departure: Disposition: HOME/RESIDENCE PRIOR TO ADM Condition: STABLE Referrals: LEELA ESTEVEZ DO (PCP) Scripts Ondansetron Hcl (ZOFRAN) 8 Mg Tablet 8 MG PO QIDPRN PRN for pain, nausea, #30 BOTTLE Prov: DARIUS LAZO MD 06/02/19 Sumatriptan Succinate (IMITREX) 100 Mg Tablet 100 MG PO 1X for migrane, #10 TAB Prov: DARIUS LAZO MD 06/02/19 Dragon Disclaimer This chart was dictated in whole or in part using Voice Recognition software in a busy, high-work load, and often noisy Emergency Department environment. It may contain unintended and wholly unrecognized errors or omissions. DARIUS LAZO MD Jun 02, 2019 20:04
[2019-06-02] MEDS ORDERED: IV RINGERS SOLUTION,LACTATED 1,000 ML IV ONE (20:30)
[2019-06-02] MEDS ORDERED: ONDANSETRON PF 4 MG/2 ML VIAL. IVP ONE (20:30)
[2019-06-02] MEDS ORDERED: SUMAtriptan SUCC 6 MG/0.5 ML VIAL SQ ONE (20:30)
[2019-06-02] MEDS ORDERED: KETOROLAC 30 MG/ML VIAL. IVP ONE (20:30)
[2019-06-02] MEDS ORDERED: ONDA8TAB9 PO (20:35)
[2019-06-02] MEDS ORDERED: SUMA100T3 PO (20:35)
[2019-06-02 20:43] LABS: BASO # 0.1 x10^3/uL (0.0-0.2); BASO % 1 % (0-3); EOS # 0.2 x10^3/uL (0.0-0.7); EOS % 3 % (0-3); HEMATOCRIT 38.3 % (36.0-47.0); HEMOGLOBIN 12.8 g/dL (12.0-15.5); LYMPH # 3.1 x10^3/uL (1.0-4.8); LYMPH % 42 % (24-48); MEAN CORPUSCULAR HEMOGLOBIN 31 pg (25-35); MEAN CORPUSCULAR HGB CONC 33 g/dL (31-37); MEAN CORPUSCULAR VOLUME 93 fL (79-100); MONO # 0.5 x10^3/uL (0.0-1.1); MONO % 7 % (0-9); NEUT # 3.4 x10^3uL (1.8-7.7); NEUT % 46 % (31-73); PLATELET COUNT 214 x10^3/uL (140-400); RED BLOOD COUNT 4.11 x10^6/uL (3.50-5.40); RED CELL DISTRIBUTION WIDTH 13.2 % (11.5-14.5); WHITE BLOOD COUNT 7.4 x10^3/uL (4.0-11.0)
[2019-06-02 20:48] LABS: CALCIUM 8.3 mg/dL (8.5-10.1); CREATININE 0.8 mg/dL (0.6-1.0)
[2019-06-02 20:54] LABS: ALBUMIN 3.3 g/dL (3.4-5.0); TOTAL BILIRUBIN 0.3 mg/dL (0.2-1.0); TOTAL PROTEIN 6.6 g/dL (6.4-8.2)
[2019-06-02 21:01] VITALS: BP 131/89
[2019-06-02 21:28] LABS: AMPHETAMINE/METHAMPHETAMINE NEG (NEG); BARBITURATES NEG (NEG); BENZODIAZEPINES NEG (NEG); CANNABINOIDS NEG (NEG); COCAINE NEG (NEG); METHADONE NEG (NEG); OPIATES NEG (NEG); PHENCYCLIDINE NEG (NEG)
[2019-06-02 21:36] LABS: CLARITY,URINE HAZY; COLOR,URINE STRAW
[2019-06-02 21:37] LABS: BACTERIA,URINE MOD /HPF (0-FEW); BILIRUBIN,URINE NEG (NEG); GLUCOSE,URINE NEG (NEG); NITRITE,URINE NEG (NEG); SQUAMOUS EPITHELIAL CELL,UR OCC /LPF; UROBILINOGEN,URINE 0.2 mg/dL (0.2 mg/dL)
[2019-06-02] MEDS ORDERED: MORPHINE SULFATE 10 MG/ML SYRINGE. SQ ONE (21:45)
[2019-06-02 21:52] LABS: SEDIMENTATION RATE 6 (0-25)
[2019-06-02] MEDS ORDERED: PROCHLORPERAZINE 10 MG/2 ML VIAL. IV ONE (22:00)
[2019-06-02] MEDS ORDERED: diphenhydrAMINE 50 MG/ML VIAL IVP ONE (22:00)
== END 2019-06-02 21:56 | disposition home or self-care (01) ==
LOC: ER 19:40
DX: G43.909 Migraine, unspecified, not intractable, without status migrainosus (principal); G89.29 Other chronic pain; M79.7 Fibromyalgia; F41.9 Anxiety disorder, unspecified; M54.42 Lumbago with sciatica, left side; M19.90 Unspecified osteoarthritis, unspecified site; Z90.49 Acquired absence of other specified parts of digestive tract; Z98.51 Tubal ligation status; Z88.5 Allergy status to narcotic agent; Z88.6 Allergy status to analgesic agent
CPT/HCPCS: 36415; 80051; 80053; 80307; 81001; 81025; 85025; 85651; 87086; 96361; 96372; 96374; 96375; 99284; J0780; J1200; J1885; J2060; J2270; J2405; J3030; J7120

== ENCOUNTER 2020-01-28 19:38 | Emergency (ER) | payer OTHER ==
[~2020-01-28] VITALS: Ht 175.3 cm; Wt 65.0 kg
[~2020-01-28 19:38] MED LIST changes: +ONDA8TAB9 PO; +SUMA100T3 PO
[2020-01-28] MEDS ORDERED: oxyCODONE/APAP 5/325 1 TAB TABLET PO ONE (20:30)
--- NOTE | 2020-01-28 21:06 | RAD ---
Exam: Left knee 3 views INDICATION: Left knee injury TECHNIQUE: Frontal, lateral and oblique views of left knee Comparisons: None FINDINGS: Bone mineralization is normal. No acute or healed fractures. Soft tissues are unremarkable. Joint spaces are well-maintained. IMPRESSION: No acute osseous abnormality. Electronically signed by: Flakito Romero MD (01/28/2020 9:03 PM) [id number]
--- NOTE | 2020-01-28 21:11 | RAD ---
Exam: Lumbar spine 4 views INDICATION: Lower back pain TECHNIQUE: Frontal, lateral and lateral oblique views lumbar spine Comparisons: None FINDINGS: Vertebral body heights are well-maintained. There is a mild dextroconvex curvature of the lumbar spine. Mild bilateral facet arthropathy noted in the lower lumbar spine. Visualized soft tissues are unremarkable. IMPRESSION: Overall mild spondylotic changes lumbar spine as described above. Electronically signed by: Flakito Romero MD (01/28/2020 9:08 PM) [id number]
--- NOTE | 2020-01-28 21:20 | PHYS DOC ---
Past History Past Medical History: Anxiety, Arthritis, Migraines, Sciatica, Other Additional Past Medical Histor: chronic back pain, history of scoliosis Past Surgical History: Cholecystectomy, Tonsillectomy, Tubal ligation Smoking: Non-smoker Alcohol Use: None Drug Use: None General Adult EDM: Chief Complaint: BACK INJURY HPI: HPI: Patient is a 39-year-old female who presented to ER today for evaluation of left knee pain and low back pain. Patient says she was walking in her garage area and accidentally bumped her left knee again the wall and somehow hurt her back in the process. Patient has history of chronic back problem. Patient denies any bowel bladder incontinence, no fever, no cough, no abdominal pain, no nausea vomiting. Review of Systems: Review of Systems: Constitutional: Denies fever or chills Eyes: Denies change in visual acuity HENT: Denies nasal congestion or sore throat Respiratory: Denies cough or shortness of breath Cardiovascular: Denies chest pain or edema GI: Denies abdominal pain, nausea, vomiting, bloody stools or diarrhea : Denies dysuria Musculoskeletal: Positive for left knee pain, low back pain. Integument: Denies rash Neurologic: Denies headache, focal weakness or sensory changes Endocrine: Denies polyuria or polydipsia Lymphatic: Denies swollen glands Psychiatric: Denies depression or anxiety Heart Score: Risk Factors: Risk Factors: DM, Current or recent (<one month) smoker, HTN, HLP, family history of CAD, obesity. Risk Scores: Score 0 - 3: 2.5% MACE over next 6 weeks - Discharge Home Score 4 - 6: 20.3% MACE over next 6 weeks - Admit for Clinical Observation Score 7 - 10: 72.7% MACE over next 6 weeks - Early Invasive Strategies Current Medications: Current Meds: Current Medications Medications (Trade) Dose Ordered Sig/[facility] Start Time Stop Time Status Last Admin Dose Admin Oxycodone/ Acetaminophen (Percocet 5/325) 1 tab 1X ONCE 01/28/20 20:30 01/28/20 20:31 DC 01/28/20 20:41 1 TAB Allergies: Allergies: Allergies Coded Allergies Type Severity Reaction Last Updated Verified hydrocodone Adverse Reaction Intermediate Bad migraine 03/30/19 Yes tramadol Adverse Reaction Unknown Bad migraine 03/30/19 Yes Physical Exam: PE: Constitutional: Well developed, well nourished, no acute distress, non-toxic appearance. [] HENT: Normocephalic, atraumatic, bilateral external ears normal, oropharynx moist, no oral exudates, nose normal. [] Eyes: PERRLA, EOMI, conjunctiva normal, no discharge. [] Neck: Normal range of motion, no tenderness, supple, no stridor. [] Cardiovascular:Heart rate regular rhythm, no murmur [] Lungs & Thorax: Bilateral breath sounds clear to auscultation [] Abdomen: Bowel sounds normal, soft, no tenderness, no masses, no pulsatile masses. [] Skin: Warm, dry, no erythema, no rash. [] Back: No tenderness, no CVA tenderness. [] Extremities: There is tenderness to palpation on the left anterior knee area, left knee joint is stable. There is no open wound. Neurologic: Alert and oriented X 3, normal motor function, normal sensory function, no focal deficits noted. [] Psychologic: Affect normal, judgement normal, mood normal. [] Current Patient Data: Vital Signs: Vital Signs Date Time Temp Pulse Resp B/P (MAP) Pulse Ox O2 Delivery O2 Flow Rate FiO2 01/28/20 19:51 98.1 78 18 137/74 (95) 98 Room Air EKG: EKG: [] Radiology/Procedures: Radiology/Procedures: [][address] [address] IMAGING REPORT Signed PATIENT: TERRY BELTRÁN ACCOUNT: [id number] : 1980 LOCATION: ER AGE: 39 SEX: F EXAM STATUS: REG ER ORD. PHYSICIAN: NURYS MALIK DO REASON: lower back pain PROCEDURE: LUMBAR SPINE MIN 4V Exam: Lumbar spine 4 views INDICATION: Lower back pain TECHNIQUE: Frontal, lateral and lateral oblique views lumbar spine Comparisons: None FINDINGS: Vertebral body heights are well-maintained. There is a mild dextroconvex curvature of the lumbar spine. Mild bilateral facet arthropathy noted in the lower lumbar spine. Visualized soft tissues are unremarkable. IMPRESSION: Overall mild spondylotic changes lumbar spine as described above. Electronically signed by: Flakito Hedrick MD (01/28/2020 9:08 PM) [id number] DICTATED AND SIGNED BY: FLAKITO HEDRICK MD DATE: 01/28/202107 CC: NURYS MALIK DO; LEELA ESTEVEZ DO ~ [address] [address] IMAGING REPORT Signed PATIENT: TERRY BELTRÁN ACCOUNT: [id number] : 1980 LOCATION: ER AGE: 39 SEX: F EXAM STATUS: REG ER ORD. PHYSICIAN: NURYS MALIK DO REASON: left knee injury PROCEDURE: KNEE LEFT 3V Exam: Left knee 3 views INDICATION: Left knee injury TECHNIQUE: Frontal, lateral and oblique views of left knee Comparisons: None FINDINGS: Bone mineralization is normal. No acute or healed fractures. Soft tissues are unremarkable. Joint spaces are well-maintained. IMPRESSION: No acute osseous abnormality. Electronically signed by: Flakito Hedrick MD (01/28/2020 9:03 PM) [id number] DICTATED AND SIGNED BY: FLAKITO HEDRICK MD DATE: 01/28/202102 CC: NURYS MALIK DO; LEELA ESTEVEZ DO ~ Course & Med Decision Making: Course & Med Decision Making Pertinent Labs and Imaging studies reviewed. (See chart for details) [] Dragon Disclaimer: Dragon Disclaimer: This electronic medical record was generated, in whole or in part, using a voice recognition dictation system. Departure Departure: Impression: Primary Impression: Lower back pain Additional Impression: Contusion of knee, left Disposition: 01 HOME/RESIDENCE PRIOR TO ADM Condition: STABLE Referrals: LEELA ESTEVEZ DO (PCP) please call your family doctor for follow up. Patient Instructions: Back Pain, Adult, Contusion Additional Instructions: Thank you for visiting our Emergency Department. We appreciate you trusting us with your care. If any additional problems come up don't hesitate to return to visit us. Please follow up with your primary care provider so they can plan additional care if needed and know about the problem that you had. If symptoms worsen come back to the Emergency Department. Any concerning symptoms that start such as chest pain, shortness of air, weakness or numbness on one side of the body, running high fevers or any other concerning symptoms return to the ER. Scripts Oxycodone HCl/Acetaminophen (Percocet 5-325 mg Tablet) 1 Each Tablet 1 TAB PO PRN TID PRN for PAIN MDD 3 Tablet(s) for 3 Days, #10 TAB 0 Refills Prov: NURYS MALIK DO 01/28/20 Naproxen Sodium (ANAPROX DS) 550 Mg Tablet 1 TAB PO BID PRN for PAIN for 15 Days, #30 TAB 0 Refills Prov: NURYS MALIK DO 01/28/20 Justification of Admission: Justification of Admission: Justification of Admission Dx: N/A NURYS MALIK DO Jan 28, 2020 21:20
[2020-01-28] MEDS ORDERED: NAPR-682 PO (21:32)
[2020-01-28] MEDS ORDERED: OXYC-325 PO (21:32)
== END 2020-01-28 21:40 | disposition home or self-care (01) ==
LOC: ER 19:38
DX: S80.02XA Contusion of left knee, initial encounter (principal); M54.5 Low back pain; F41.9 Anxiety disorder, unspecified; M19.90 Unspecified osteoarthritis, unspecified site; G43.909 Migraine, unspecified, not intractable, without status migrainosus; G89.29 Other chronic pain; Z90.89 Acquired absence of other organs; Z98.51 Tubal ligation status; Z88.5 Allergy status to narcotic agent; Z88.6 Allergy status to analgesic agent; W22.01XA Walked into wall, initial encounter; Y93.01 Activity, walking, marching and hiking; Y92.59 Other trade areas as the place of occurrence of the external cause; Y99.8 Other external cause status
CPT/HCPCS: 72110; 73562; 99284

== ENCOUNTER 2020-03-10 16:41 | Emergency (ER) | payer OTHER ==
[~2020-03-10] VITALS: Ht 175.3 cm; Wt 65.0 kg
[~2020-03-10 16:41] MED LIST changes: +NAPR-682 PO; +OXYC-325 PO
--- NOTE | 2020-03-10 17:27 | RAD ---
Three-view bilateral knee dated 03/10/2020. No comparison available. Clinical data indication: Pain. FINDINGS: Three-view bilateral knee show normal bony alignment. No displaced fracture. No periostitis or bone destruction. No apparent joint effusion or loose body. IMPRESSION: No acute findings. Electronically signed by: Lavon Clayton MD (03/10/2020 5:23 PM) POOL
[2020-03-10] MEDS ORDERED: MORPHINE SULFATE 10 MG/ML SYRINGE. SQ ONE (17:45)
--- NOTE | 2020-03-10 18:34 | RAD ---
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 Instructions: / History: . Comparison: No comparison is available. Technique: Contiguous axial imaging of lumbar spine performed with thin cut coronal and sagittal reconstruction. One or more of the following individualized dose reduction techniques were utilized for this examination: 1. Automated exposure control 2. Adjustment of the mA and/or kV according to patient size 3. Use of iterative reconstruction technique. FINDINGS: There is mild levoconvex scoliotic curvature. Sagittal alignment is anatomic. Vertebral body heights are maintained. Posterior elements are intact. No evidence of fracture. There is minimal broad-based bulging at L2-L3, L3-L4 and L4-L5. Mild hypertrophic change of the lower lumbar apophyseal joints. The bony canal and foramina appear adequate. Images of the retroperitoneum show no significant abnormality. The gallbladder is surgically absent. Small bilateral ovarian cysts measuring about 1.7 cm each. No free fluid. Limited images of lung bases are clear. IMPRESSION: 1. No acute bony or soft tissue abnormality. 2. Mild lower lumbar spondylosis with mild levoconvex scoliotic curvature. Electronically signed by: Lavon Clayton MD (03/10/2020 6:31 PM) [facility]
--- NOTE | 2020-03-10 18:46 | PHYS DOC ---
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 and hurt my knee and back after a run last week.. I ve not gotten better since 3 weeks. ago.." Patient is a 40 year old female who presents with above hx of bilateral knee medial ligament and lumbar area injury. Patient localizes pain to bilateral medial knee areas. A positive straight leg lift. Does have tenderness over medial collateral ligament. Patient also complaining of lumbar sacral back pain. Does have findings of muscle spasm lumbar sacral area. Some radiation down right sciatic nerve. Straight leg lift does seem to exacerbate low back pain. Radiation no suppression. No history of fevers. No history of IV drug use. No history of problems with defecation or urination. Review of Systems: Review of Systems: Constitutional: Denies fever or chills Eyes: Denies change in visual acuity HENT: Denies nasal congestion or sore throat Respiratory: Denies cough or shortness of breath Cardiovascular: Denies chest pain or edema GI: Denies abdominal pain, nausea, vomiting, bloody stools or diarrhea : Denies dysuria Musculoskeletal: Complains of lumbar sacral back pain. Complains of bilateral knee pain Integument: Denies rash Neurologic: Denies headache, focal weakness or sensory changes Endocrine: Denies polyuria or polydipsia Lymphatic: Denies swollen glands Psychiatric: Denies depression or anxiety Heart Score: Risk Factors: Risk Factors: DM, Current or recent (<one month) smoker, HTN, HLP, family history of CAD, obesity. Risk Scores: Score 0 - 3: 2.5% MACE over next 6 weeks - Discharge Home Score 4 - 6: 20.3% MACE over next 6 weeks - Admit for Clinical Observation Score 7 - 10: 72.7% MACE over next 6 weeks - Early Invasive Strategies Current Medications: Current Meds: Current Medications Medications (Trade) Dose Ordered Sig/Kade Start Time Stop Time Status Last Admin Dose Admin Morphine Sulfate (Morphine 10mg Syringe) 10 mg 1X ONCE 03/10/20 17:45 03/10/20 17:48 DC Allergies: Allergies: Allergies Coded Allergies Type Severity Reaction Last Updated Verified hydrocodone Adverse Reaction Intermediate Bad migraine 03/30/19 Yes tramadol Adverse Reaction Unknown Bad migraine 03/30/19 Yes Physical Exam: PE: Constitutional: Well developed, well nourished, moderate acute distress, non-t oxic appearance. [] HENT: Normocephalic, atraumatic, bilateral external ears normal, oropharynx moist, no oral exudates, nose normal. [] Eyes: PERRLA, EOMI, conjunctiva normal, no discharge. [] Neck: Normal range of motion, no tenderness, supple, no stridor. [] Cardiovascular:Heart rate regular rhythm, no murmur [] Lungs & Thorax: Bilateral breath sounds equal apex on auscultation [] Abdomen: Bowel sounds normal, soft, no tenderness, no masses, no pulsatile masses. [] Skin: Warm, dry, no erythema, no rash. [] Back: Complains of lumbar sacral muscle spasms and bilateral sciatica more on ri ght. Extremities: Bilateral knee collateral ligament tenderness, no cyanosis, no clubbing, ROM intact, no edema. [] Neurologic: Alert and oriented X 3, normal motor function, normal sensory function, no focal deficits noted. [] Psychologic: Affect anxious, judgement normal, mood normal. [] Current Patient Data: Labs: Laboratory Tests Test 03/10/20 18:20 POC Urine HCG, Qualitative hcg negative (Negative) Vital Signs: Vital Signs Date Time Temp Pulse Resp B/P (MAP) Pulse Ox O2 Delivery O2 Flow Rate FiO2 03/10/20 17:08 97.9 108 18 136/88 (104) 100 EKG: EKG: [] Radiology/Procedures: Radiology/Procedures: [[address] [address] IMAGING REPORT Signed PATIENT: TERRY BELTRÁN ACCOUNT: [id number] : 1980 LOCATION: ER AGE: 40 SEX: F EXAM STATUS: REG ER ORD. PHYSICIAN: JUNIOR ANDREWS DO REASON: bilateral knee pain PROCEDURE: KNEE BILAT 3V Three-view bilateral knee dated 03/10/2020. No comparison available. Clinical data indication: Pain. FINDINGS: Three-view bilateral knee show normal bony alignment. No displaced fracture. No periostitis or bone destruction. No apparent joint effusion or loose body. IMPRESSION: No acute findings. Electronically signed by: Lavon Clayton MD (03/10/2020 5:23 PM) POOL DICTATED AND SIGNED BY: LAVON CLAYTON MD DATE: 03/10/20 7898 CC: JUNIOR ANDREWS DO; PCP,NO ~ ][address] [address] IMAGING REPORT Signed PATIENT: TERRY BELTRÁN ACCOUNT: [id number] : 1980 LOCATION: ER AGE: 40 SEX: F EXAM STATUS: REG ER ORD. 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 Instructions: / History: . Comparison: No comparison is available. Technique: Contiguous axial imaging of lumbar spine performed with thin cut coronal and sagittal reconstruction. One or more of the following individualized dose reduction techniques were utilized for this examination: 1. Automated exposure control 2. Adjustment of the mA and/or kV according to patient size 3. Use of iterative reconstruction technique. FINDINGS: There is mild levoconvex scoliotic curvature. Sagittal alignment is anatomic. Vertebral body heights are maintained. Posterior elements are intact. No evidence of fracture. There is minimal broad-based bulging at L2-L3, L3-L4 and L4-L5. Mild hypertrophic change of the lower lumbar apophyseal joints. The bony canal and foramina appear adequate. Images of the retroperitoneum show no significant abnormality. The gallbladder is surgically absent. Small bilateral ovarian cysts measuring about 1.7 cm each. No free fluid. Limited images of lung bases are clear. IMPRESSION: 1. No acute bony or soft tissue abnormality. 2. Mild lower lumbar spondylosis with mild levoconvex scoliotic curvature. Electronically signed by: Lavon Clayton MD (03/10/2020 6:31 PM) POOL DICTATED AND SIGNED BY: LAVON CLAYTON MD DATE: 03/10/20 183 CC: DARIUS LAZO MD; PCP,NO ~ Course & Med Decision Making: Course & Med Decision Making Pertinent Labs and Imaging studies reviewed. (See chart for details) Pt. continue Ice packs as needed. Take Tylenol and ibuprofen for pain. Follow-up primary care. Consider orthopedic consult if persistent knee pain. Wear Andrew wrap's. Marked pain may take Vicoprofen and Flexeril for muscle spasm. Follow-up. Impression: 1. Bilateral knee sprains-medial collateral ligaments 2. Lumbar sacral spasm and sprain 3. Sciatica Dragon Disclaimer: Jerilyn Disclaimer: This electronic medical record was generated, in whole or in part, using a voice recognition dictation system. Departure Departure: Disposition: 01 DC HOME SELF CARE/HOMELESS Condition: STABLE Referrals: PCP,NO (PCP) Scripts Cyclobenzaprine Hcl (CYCLOBENZAPRINE HCL) 10 Mg Tablet 10 MG PO tidprn for spasms, #30 TAB Prov: DARIUS LAZO MD 03/10/20 Hydrocodone/Ibuprofen (HYDROCODONE-IBUPROFEN 7.5-200 ) 1 Each Tablet 1 TAB PO PRN Q6HRS PRN for PAIN, #30 TAB 0 Refills Prov: DARIUS LAZO MD 03/10/20 Jerilyn Disclaimer This chart was dictated in whole or in part using Voice Recognition software in a busy, high-work load, and often noisy Emergency Department environment. It may contain unintended and wholly unrecognized errors or omissions. DARIUS LAZO MD Mar 10, 2020 18:46
[2020-03-10 19:00] VITALS: BP 129/84
[2020-03-10] MEDS ORDERED: HYDR-1179 PO (19:03)
[2020-03-10] MEDS ORDERED: CYCL-331 PO (19:03)
[2020-03-10 19:28] LABS: BILIRUBIN,URINE NEG (NEG); CLARITY,URINE CLEAR; COLOR,URINE YELLOW; GLUCOSE,URINE NEG (NEG)
[2020-03-10 19:29] LABS: BACTERIA,URINE FEW /HPF (0-FEW); NITRITE,URINE NEG (NEG); RBC,URINE 0 /HPF (0-2); SQUAMOUS EPITHELIAL CELL,UR MOD /LPF; UROBILINOGEN,URINE 0.2 mg/dL (0.2 mg/dL); WBC,URINE OCC /HPF (0-4)
[2020-03-10 19:31] LABS: BARBITURATES NEG (NEG); BENZODIAZEPINES NEG (NEG); CANNABINOIDS NEG (NEG); COCAINE NEG (NEG); METHADONE NEG (NEG); OPIATES NEG (NEG); PHENCYCLIDINE NEG (NEG)
[2020-03-10 19:33] LABS: AMPHETAMINE/METHAMPHETAMINE NEG (NEG)
== END 2020-03-10 19:10 | disposition home or self-care (01) ==
LOC: ER 16:41
DX: S33.5XXA Sprain of ligaments of lumbar spine, initial encounter (principal); S33.8XXA Sprain of other parts of lumbar spine and pelvis, initial encounter; S83.412A Sprain of medial collateral ligament of left knee, initial encounter; S83.411A Sprain of medial collateral ligament of right knee, initial encounter; M19.90 Unspecified osteoarthritis, unspecified site; G43.909 Migraine, unspecified, not intractable, without status migrainosus; G89.29 Other chronic pain; Z90.49 Acquired absence of other specified parts of digestive tract; Z98.51 Tubal ligation status; Z88.5 Allergy status to narcotic agent; Z88.8 Allergy status to other drugs, medicaments and biological substances; X50.9XXA Other and unspecified overexertion or strenuous movements or postures, initial encounter; Y93.89 Activity, other specified; Y92.89 Other specified places as the place of occurrence of the external cause; Y99.0 Civilian activity done for income or pay
CPT/HCPCS: 36415; 72131; 73562; 80307; 81001; 81025; 87086; 99285-25

== ENCOUNTER 2020-04-03 14:06 | Emergency (ER) | payer OTHER ==
[~2020-04-03] VITALS: Ht 175.3 cm; Wt 59.0 kg
[2020-04-03 14:19] VITALS: BP 120/74
[2020-04-03] MEDS ORDERED: AMOX1TAB61 PO (14:30)
[2020-04-03] MEDS ORDERED: NEOM28.32 TP (14:30)
--- NOTE | 2020-04-03 14:30 | PHYS DOC ---
Past History Past Medical History: Anxiety, Arthritis, Migraines, Sciatica, Other Additional Past Medical Histor: chronic back pain, history of scoliosis (LIZ SCRUGGS APRN) Past Surgical History: Cholecystectomy, Tonsillectomy, Tubal ligation (LIZ SCRUGGS APRN) Smoking: Non-smoker Alcohol Use: None Drug Use: None (LIZ SCRUGGS APRN) Adult General Chief Complaint Chief Complaint: ANIMAL BITE HPI HPI Patient is a 40-year-old female patient presenting to the ED today with dog bites to the left thigh that occurred a couple minutes prior to coming to the ED. Patient states she got bit by her friend's dog. Patient states the dog is up-to-date with its shots. (LIZ SCRUGGS APRN) Review of Systems Review of Systems Constitutional: Denies fever or chills [] Musculoskeletal: Denies back pain or joint pain [] Integument: Dog bites to the left thigh Neurologic: Denies headache, focal weakness or sensory changes [] All other systems were reviewed and found to be within normal limits, except as documented in this note. (LIZ SCRUGGS APRN) Allergies Allergies Allergies Coded Allergies Type Severity Reaction Last Updated Verified hydrocodone Adverse Reaction Intermediate Bad migraine 03/30/19 Yes tramadol Adverse Reaction Unknown Bad migraine 03/30/19 Yes (LIZ SCRUGGS APRN) Physical Exam Physical Exam Constitutional: Well developed, well nourished, no acute distress, non-toxic appearance. [] Skin: Warm, dry, left dorsal thigh with 2 puncture wound in the middle of the thigh, each wound is approximately 1 x 1 cm wound. None of them is bleeding. No erythema. Back: No tenderness, no CVA tenderness. [] Extremities: No tenderness, no cyanosis, no clubbing, ROM intact, no edema. [] Neurologic: Alert and oriented X 3, normal motor function, normal sensory function, no focal deficits noted. [] Psychologic: Affect normal, judgement normal, mood normal. [] (LIZ SCRUGGS APRN) EKG EKG [] (LIZ SCRUGGS APRN) Radiology/Procedures Radiology/Procedures [] (LIZ SCRUGGS APRN) Heart Score Risk Factors: Risk Factors: DM, Current or recent (<one month) smoker, HTN, HLP, family history of CAD, obesity. Risk Scores: Risk Factors: DM, Current or recent (<one month) smoker, HTN, HLP, family history of CAD, obesity. (LIZ SCRUGGS APRN) Course & Med Decision Making Course & Med Decision Making Pertinent Labs and Imaging studies reviewed. (See chart for details) This is a 40-year-old female patient with dog bite to the left thigh. Dog's shots are up-to-date. Patient was given tetanus, discharged on Augmentin. Provided return precautions. (LIZ SCRUGGS APRN) Dragon Disclaimer Dragon Disclaimer This electronic medical record was generated, in whole or in part, using a voice recognition dictation system. (LIZ SCRUGGS APRN) Attending Co-Sign The patient was seen and interviewed as well as examined at the bedside. The chart was reviewed. The case was discussed. Agree with the plan of care. (JUNIOR ANDREWS DO) Departure Departure: Impression: Primary Impression: Dog bite of left thigh Disposition: HOME SELF CARE/HOMELESS Condition: STABLE Referrals: PCP,UNKNOWN (PCP) follow up with your doctor in 1-2 weeks Patient Instructions: Animal Bite, [id number] Additional Instructions: Please clean your dog bite site twice a day with regular soap and water and apply neosporin to the area. Take the prescribed antibiotics until completed. Follow-up with your doctor in 1 to 2 weeks as needed. Monitor the area for any worsening condition including increasing redness, warmth, or any concerning signs of infection and return to the ED Scripts Neomy Sulf/Bacitrac Zn/Poly (NEOSPORIN OINTMENT) 28.3 Gm Oint...g. 1 KADE TP BID, #1 MISC Prov: LIZ SCRUGGS APRN 04/03/20 Amoxicillin/Potassium Clav (AUGMENTIN 875-125 TABLET) 1 Each Tablet 1 TAB PO BID for 10 Days, #20 TAB 0 Refills Prov: LIZ SCRUGGS APRN 04/03/20 Problem Qualifiers Primary Impression: Dog bite of left thigh Encounter type: initial encounter Qualified Codes: S71.152A - Open bite, left thigh, initial encounter; W54.0XXA - Bitten by dog, initial encounter LIZ SCRUGGS APRN Apr 03, 2020 14:30 JUNIOR ANDREWS DO Apr 04, 2020 06:22
[2020-04-03] MEDS ORDERED: ACETAMINOPHEN 500 MG TABLET PO ONE (14:45)
[2020-04-03] MEDS ORDERED: AMOXICILLIN/K CLAV 875/125MG TABLET. PO ONE (14:45)
[2020-04-03] MEDS ORDERED: DIPH,PERTUSS(ACELL),TET VAC/PF 0.5 ML SYRINGE. VAX IM ONE (14:45)
== END 2020-04-03 14:51 | disposition home or self-care (01) ==
LOC: ER 14:06
DX: S71.132A Puncture wound without foreign body, left thigh, initial encounter (principal); M19.90 Unspecified osteoarthritis, unspecified site; G43.909 Migraine, unspecified, not intractable, without status migrainosus; G89.29 Other chronic pain; Z88.5 Allergy status to narcotic agent; Z88.6 Allergy status to analgesic agent; W54.0XXA Bitten by dog, initial encounter; Y93.89 Activity, other specified; Y92.89 Other specified places as the place of occurrence of the external cause; Y99.8 Other external cause status
CPT/HCPCS: 90471; 90715; 99283

== ENCOUNTER 2021-02-25 18:01 | Emergency (ER) | payer OTHER ==
[~2021-02-25] VITALS: Ht 175.3 cm; Wt 63.0 kg
[~2021-02-25 18:01] MED LIST changes: +AMOX1TAB61 PO; +NEOM28.32 TP
[2021-02-25] MEDS ORDERED: IV NORMAL SALINE 1,000ML 1,000 ML IV ONE (18:45)
[2021-02-25] MEDS ORDERED: ONDANSETRON PF 4 MG/2 ML VIAL. IVP ONE (18:45)
[2021-02-25] MEDS ORDERED: MORPHINE SULFATE 4 MG/ML DISP.SYRIN. IV ONE ×2 (18:45→20:00)
--- NOTE | 2021-02-25 18:55 | EKG ---
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
[2021-02-25 18:59] LABS: BASO # 0.1 x10^3/uL (0.0-0.2); BASO % 1 % (0-3); EOS # 0.1 x10^3/uL (0.0-0.7); EOS % 2 % (0-3); HEMOGLOBIN 13.7 g/dL (12.0-15.5); LYMPH % 42 % (24-48); MEAN CORPUSCULAR HEMOGLOBIN 30 pg (25-35); MEAN CORPUSCULAR HGB CONC 34 g/dL (31-37); MEAN CORPUSCULAR VOLUME 91 fL (79-100); MONO # 0.4 x10^3/uL (0.0-1.1); MONO % 6 % (0-9); NEUT # 3.5 x10^3uL (1.8-7.7); NEUT % 49 % (31-73); PLATELET COUNT 254 x10^3/uL (140-400); RED BLOOD COUNT 4.51 x10^6/uL (3.50-5.40); WHITE BLOOD COUNT 7.1 x10^3/uL (4.0-11.0)
--- NOTE | 2021-02-25 19:03 | PHYS DOC ---
Past History Past Medical History: Migraines Additional Past Medical Histor: chronic back pain, history of scoliosis (HERB MAY APRN) Past Surgical History: Cholecystectomy, Tonsillectomy, Tubal ligation, Other Additional Past Surgical Histo: BREAST BIOPSY, hernia repair with mesh (HERB MAY APRN) Smoking: Non-smoker Alcohol Use: Rarely Drug Use: None (HERB MAY APRN) General Adult EDM: Chief Complaint: ABDOMINAL PAIN HPI: HPI: Patient is a 41-year-old female who presents with generalized abdominal pain. Patient reports that symptoms started on Friday and has been a constant, sharp pain. Denies nausea/vomiting/diarrhea, denies dysuria or frequency. Afebrile. Patient's been taking ibuprofen at home with no relief. Denies recent illness. History of chronic back pain. (HERB MAY APRN) Review of Systems: Review of Systems: Constitutional: Denies fever or chills Eyes: Denies change in visual acuity HENT: Denies nasal congestion or sore throat Respiratory: Denies cough or shortness of breath Cardiovascular: Denies chest pain or edema GI: Reports abdominal pain. Denies nausea, vomiting, bloody stools or diarrhea : Denies dysuria Musculoskeletal: Denies back pain or joint pain Integument: Denies rash Neurologic: Denies headache, focal weakness or sensory changes Endocrine: Denies polyuria or polydipsia Lymphatic: Denies swollen glands Psychiatric: Denies depression or anxiety (HREB MAY APRN) Current Medications: Current Meds: Current Medications Medications (Trade) Dose Ordered Sig/Kade Start Time Stop Time Status Last Admin Dose Admin Morphine Sulfate (Morphine 4mg Syringe) 4 mg 1X ONCE 02/25/21 18:45 02/25/21 18:46 DC 02/25/21 18:52 4 MG Ondansetron HCl (Zofran) 4 mg 1X ONCE 02/25/21 18:45 02/25/21 18:46 DC 02/25/21 18:50 4 MG Sodium Chloride 1,000 ml @ 1,000 mls/hr 1X ONCE 02/25/21 18:45 02/25/21 19:44 02/25/21 18:49 1,000 MLS/HR (HERB MAY APRN) Allergies: Allergies: Allergies Coded Allergies Type Severity Reaction Last Updated Verified ibuprofen Allergy Unknown 02/25/21 Yes ketorolac Allergy Unknown 02/25/21 Yes hydrocodone Adverse Reaction Intermediate Bad migraine 02/25/21 Yes tramadol Adverse Reaction Unknown Bad migraine 02/25/21 Yes (HERB MAY APRN) Physical Exam: PE: Constitutional: Well developed, well nourished, no acute distress, non-toxic appearance. [] HENT: Normocephalic, atraumatic, bilateral external ears normal, oropharynx moist, no oral exudates, nose normal. [] Eyes: PERRLA, EOMI, conjunctiva normal, no discharge. [] Neck: Normal range of motion, no tenderness, supple, no stridor. [] Cardiovascular:Heart rate regular rhythm, no murmur [] Lungs & Thorax: Bilateral breath sounds clear to auscultation [] Abdomen: Bowel sounds normal, soft, no tenderness, no masses, no pulsatile masses. [] Skin: Warm, dry, no erythema, no rash. [] Back: No tenderness, no CVA tenderness. [] Extremities: No tenderness, no cyanosis, no clubbing, ROM intact, no edema. [] Neurologic: Alert and oriented X 3, normal motor function, normal sensory function, no focal deficits noted. [] Psychologic: Affect normal, judgement normal, mood normal. [] (HERB MAY APRN) Current Patient Data: Labs: Laboratory Tests Test 02/25/21 18:53 POC Urine HCG, Qualitative hcg negative (Negative) Vital Signs: Vital Signs Date Time Temp Pulse Resp B/P (MAP) Pulse Ox O2 Delivery O2 Flow Rate FiO2 02/25/21 18:52 20 99 02/25/21 18:15 99.0 90 113/78 (90) (HERB MAY APRN) EKG: EKG: [] (HERB MAY APRN) Radiology/Procedures: Radiology/Procedures: []Exam: CT abdomen/pelvis without intravenous contrast Indication: Generalized abdominal pain Comparison: CT abdomen pelvis 06/08/2017 Technique: Helical CT imaging performed of the abdomen and pelvis without the us e of intravenous contrast. Sagittal and coronal reformats were obtained. One or more of the following individualized dose reduction techniques were utilized for this examination: 1. Automated exposure control 2. Adjustment of the mA and/or kV according to patient size 3. Use of iterative reconstruction technique. Findings: Inherently limited evaluation without intravenous contrast. Lower chest: Mild atelectasis in the left lung base. Liver: Several hypodensities in left hepatic lobe measuring up to 1 cm unchanged in likely simple cysts or hemangiomas. Gallbladder/Biliary Tree: The gallbladder is surgically absent. Bile ducts are normal Pancreas: Normal. Spleen: Normal. Adrenal Glands: Normal. Kidneys/Ureters/Bladder: Kidneys are normal in size. Ureters and bladder are normal. Reproductive Organs: Uterus is anteverted. Prominent ovarian follicles bilaterally, unchanged. Stomach, small bowel, and colon: The stomach is normal. There is no small bowel obstruction. Colon and appendix are unremarkable. Vasculature: Abdominal aorta is normal in caliber. No calcified atherosclerosis. Lymph Nodes: No lymphadenopathy. Peritoneum and retroperitoneum: No free fluid or free air. Bones: There is no acute osseous abnormality. There is pectus excavatum. There is mild leftward curvature of the lumbar spine. Impression: No acute abnormality in the abdomen and pelvis. Electronically signed by: Susan Roth MD (02/25/2021 7:49 PM) [facility] (HERB MAY APRN) Heart Score: C/O Chest Pain: No Risk Factors: Risk Factors: DM, Current or recent (<one month) smoker, HTN, HLP, family history of CAD, obesity. Risk Scores: Score 0 - 3: 2.5% MACE over next 6 weeks - Discharge Home Score 4 - 6: 20.3% MACE over next 6 weeks - Admit for Clinical Observation Score 7 - 10: 72.7% MACE over next 6 weeks - Early Invasive Strategies (HERB MAY APRN) Course & Med Decision Making: Course & Med Decision Making Pertinent Labs and Imaging studies reviewed. (See chart for details) [] 41-year-old female presents with generalized abdominal pain started on Friday. Pains been constant and sharp. Patient is afebrile. Denies nausea/vomiting/diarrhea. Patient given 4 mg of morphine and 4 mg of Zofran to treat symptoms. Patient rating pain 7/10. Patient given second dose of morphine. CT abdomen pelvis negative for acute abnormality. Discussed results with patient. Patient is reporting she is still having pain and concerned she will not build to sleep tonight. Patient given 1, 7.5/325 hydrocodone. Patient states that she can take hydrocodone. Patient should follow up with PCP if pain continues, patient states she has an appointment on Friday. Patient given strict return precautions. Patient is hemodynamically stable upon disposition. (HERB MAY APRN) Jreilyn Disclaimer: Jerilyn Disclaimer: This electronic medical record was generated, in whole or in part, using a voice recognition dictation system. (HERB MAY APRN) Departure Departure: Impression: Primary Impression: Abdominal pain Qualified Codes: R10.84 - Generalized abdominal pain Disposition: HOME / SELF CARE / HOMELESS Condition: STABLE Referrals: MICHAEL SMITH (PCP) Patient Instructions: Abdominal Pain (Nonspecific) Additional Instructions: You are seen in the emergency room for abdominal pain. All of your labs were unremarkable. CT of your abdomen and pelvis was unremarkable as well. Please call your PCP make a follow-up appointment if pain continues. Return to emergency room with worsening symptoms or concerns. EMERGENCY DEPARTMENT GENERAL DISCHARGE INSTRUCTIONS Thank you for coming to [facility] (ED) today and trusting us with you care. We trust that you had a positivie experience in our Emergency Department. If you wish to speak to the department management, you may call the director at [phone]. YOUR FOLLOW UP INSTRUCTIONS ARE FOLLOWS: 1. Do you have a private Doctor? If you do not have a private doctor, please ask for a resource list of physicians or clinics that may be able to assist you with follow up care. 2. The Emergency Physician has interpreted your x-rays. The X-Ray specialist will also review them. If there is a change in the findings, you will be notified in 48 hours when at all possible. 3. A lab test or culture has been done, your results will be reviewed and you will be notified if you need a change in treatment. ADDITIONAL INSTRUCTIONS AND INFORMATION: 1. Your care today has been supervised by a physician who is specially trained in emergency care. Many problems require more than one evaluation for a complete diagnosis and treatment. We recommend that you schedule your follow up appointment as marilu mmended to ensure complete treatment of you illness or injury. If you are unable to obtain follow up care and continue to have a problem, or if your condition worsens, we recommend that you return to the ED. 2. We are not able to safely determine your condition over the phone nor are we able to give sound medical advice over the phone. For these safety reasons, if you call for medical advice we will ask you to come to the ED for further evaluation. 3. If you have any questions regarding these discharge instructions please call the ED at [phone]. SAFETY INFORMATION: In the interest of safety, wellness, and injury prevention; we encourage you to wear your sealbelt, if you smoke; quite smoking, and we encourage family to use a protective helmet for bicycling and other sporting events that present an increased risk for head injury. IF YOUR SYMPTOMS WORSEN OR NEW SYMPTOMS DEVELOP, OR YOU HAVE CONCERNS ABOUT YOUR CONDITION; OR IF YOUR CONDITION WORSENS WHILE YOU ARE WAITING FOR YOUR FOLLOW UP APPOINTMENT; EITHER CONTACT YOUR PRIMARY CARE DOCTOR, THE PHYSICIAN WHOSE NAME AND NUMBER YOU WERE GIVEN, OR RETURN TO THE ED IMMEDIATELY. Attending Signature Attending Signature I have participated in the care of this patient and I have reviewed and agree with all pertinent clinical information above including history, exam, and recommendations. (DARIUS LAZO MD) HERB MAY APRN Feb 25, 2021 19:03 DARIUS LAZO MD Feb 26, 2021 17:14
[2021-02-25 19:10] LABS: CALCIUM 9.2 mg/dL (8.5-10.1); CREATININE 0.7 mg/dL (0.6-1.0); GFR 91.3; POTASSIUM 3.2 mmol/L (3.5-5.1)
[2021-02-25 19:13] LABS: BILIRUBIN,URINE NEG (NEG); CLARITY,URINE HAZY; COLOR,URINE YELLOW; GLUCOSE,URINE NEG (NEG); NITRITE,URINE NEG (NEG); UROBILINOGEN,URINE 0.2 mg/dL (0.2 mg/dL)
[2021-02-25 19:14] LABS: BACTERIA,URINE FEW /HPF (0-FEW); SQUAMOUS EPITHELIAL CELL,UR MOD /LPF
[2021-02-25 19:15] LABS: ALBUMIN/GLOBULIN RATIO 1.1 (1.0-1.7); TOTAL BILIRUBIN 0.7 mg/dL (0.2-1.0); TOTAL PROTEIN 7.7 g/dL (6.4-8.2)
[2021-02-25] MEDS ORDERED: POTASSIUM CHLORIDE 20 MEQ TABLET.ER. PO ONE (19:30)
--- NOTE | 2021-02-25 19:51 | RAD ---
Exam: CT abdomen/pelvis without intravenous contrast Indication: Generalized abdominal pain Comparison: CT abdomen pelvis 06/08/2017 Technique: Helical CT imaging performed of the abdomen and pelvis without the use of intravenous cont rast. Sagittal and coronal reformats were obtained. One or more of the following individualized dose reduction techniques were utilized for this examinat ion: 1. Automated exposure control 2. Adjustment of the mA and/or kV according to patient size 3. Use of iterative reconstruction technique. Findings: Inherently limited evaluation without intravenous contrast. Lower chest: Mild atelectasis in the left lung base. Liver: Several hypodensities in left hepatic lobe measuring up to 1 cm unchanged in likely simple cys ts or hemangiomas. Gallbladder/Biliary Tree: The gallbladder is surgically absent. Bile ducts are normal Pancreas: Normal. Spleen: Normal. Adrenal Glands: Normal. Kidneys/Ureters/Bladder: Kidneys are normal in size. Ureters and bladder are normal. Reproductive Organs: Uterus is anteverted. Prominent ovarian follicles bilaterally, unchanged. Stomach, small bowel, and colon: The stomach is normal. There is no small bowel obstruction. Colon an d appendix are unremarkable. Vasculature: Abdominal aorta is normal in caliber. No calcified atherosclerosis. Lymph Nodes: No lymphadenopathy. Peritoneum and retroperitoneum: No free fluid or free air. Bones: There is no acute osseous abnormality. There is pectus excavatum. There is mild leftward curva ture of the lumbar spine. Impression: No acute abnormality in the abdomen and pelvis. Electronically signed by: Susan Roth MD (02/25/2021 7:49 PM) [facility]
[2021-02-25 20:48] VITALS: BP 121/77
[2021-02-25] MEDS ORDERED: HYDROcodone/APAP 7.5/325MG 1 TAB TABLET PO ONE (22:30)
== END 2021-02-25 22:05 | disposition home or self-care (01) ==
LOC: ER 18:01
DX: R10.84 Generalized abdominal pain (principal); G43.909 Migraine, unspecified, not intractable, without status migrainosus; G89.29 Other chronic pain; Z90.49 Acquired absence of other specified parts of digestive tract; Z98.51 Tubal ligation status; Z88.5 Allergy status to narcotic agent; Z88.6 Allergy status to analgesic agent; Z88.8 Allergy status to other drugs, medicaments and biological substances
CPT/HCPCS: 36415; 74176; 80053; 81001; 81025; 83690; 85025; 87086; 93005; 96361; 96374; 96375; 96376; 99285; J2270; J2405; J7030

== ENCOUNTER 2021-04-09 00:52 | Emergency (ER) | payer OTHER ==
[~2021-04-09] VITALS: Ht 167.6 cm; Wt 59.0 kg
[~2021-04-09 00:52] MED LIST changes: -CYCL-331 PO; +CYCL10TA19 PO; +DICY20TA PO; -DICY20TA3 PO
--- NOTE | 2021-04-09 01:04 | PHYS DOC ---
Past History Past Medical History: Migraines Additional Past Medical Histor: chronic back pain, history of scoliosis Past Surgical History: Cholecystectomy, Tonsillectomy, Tubal ligation, Other Additional Past Surgical Histo: BREAST BIOPSY, hernia repair with mesh Smoking: Non-smoker Alcohol Use: Rarely Drug Use: None General Adult EDM: Chief Complaint: MECHANICAL FALL HPI: HPI: ".. I had a fall... ".. " Tripped on stairs.. and jonathan down hard and twisted my Lt. knee, ankle and foot...." Patient is a 41 year old female who presents with above hx and complaints fall and twist injury to left knee ankle and foot. Patient has had a silver dollar s ized abrasion to left knee and obvious contusion to patella. Can do straight leg lifts. Does have some pain on collateral ligament stress. Anterior stress of the knee. To have intact ACL. Posterior did elicit some pain. Inversion of ankle elicited pain. Pain also elicited with foot squeeze localized to the lateral portion of foot. Distal neurovascular is equal to right foot. Patient has been I am unable to bear full weight. Patient denies previous injury to the left knee ankle and foot. Patient denies any other injury in the fall. Review of Systems: Review of Systems: Constitutional: Denies fever or chills Eyes: Denies change in visual acuity HENT: Denies nasal congestion or sore throat Respiratory: Denies cough or shortness of breath Cardiovascular: Denies chest pain or edema GI: Denies abdominal pain, nausea, vomiting, bloody stools or diarrhea : Denies dysuria Musculoskeletal: Complains of severe left knee ankle and foot pain after trip and fall Integument: Denies rash Neurologic: Denies headache, focal weakness or sensory changes Endocrine: Denies polyuria or polydipsia Lymphatic: Denies swollen glands Psychiatric: Denies depression or anxiety Family History: Family History: Noncontributory to presentation. Current Medications: Current Meds: See nursing for home meds Allergies: Allergies: Allergies Coded Allergies Type Severity Reaction Last Updated Verified ibuprofen Allergy Unknown 02/25/21 Yes ketorolac Allergy Unknown 02/25/21 Yes hydrocodone Adverse Reaction Intermediate Bad migraine 02/25/21 Yes tramadol Adverse Reaction Unknown Bad migraine 02/25/21 Yes Physical Exam: PE: Constitutional: Well developed, well nourished, in acute distress, non-toxic appearance. [] HENT: Normocephalic, atraumatic, bilateral external ears normal, oropharynx moist, no oral exudates, nose normal. [] Eyes: PERRLA, EOMI, conjunctiva normal, no discharge. Glasses Neck: Normal range of motion, no tenderness, supple, no stridor. [] Cardiovascular:Heart rate regular rhythm, no murmur [] Lungs & Thorax: Bilateral breath sounds equal apex on auscultation [] Abdomen: Bowel sounds normal, soft, no tenderness, no masses, no pulsatile masses. [] Skin: Warm, dry, no erythema, no rash. [] Back: No tenderness, no CVA tenderness. [] Extremities: No tenderness, no cyanosis, no clubbing, ROM intact, no edema. [] Except findings in left knee ankle and foot as per HPI Neurologic: Alert and oriented X 3, moves all extremities on request, does have distal sensory,, no focal deficits noted. [] Psychologic: Affect anxious and tearful, judgement normal, mood normal. [] EKG: EKG: [] Radiology/Procedures: Radiology/Procedures: [][address] [address] IMAGING REPORT Signed PATIENT: TERRY BELTRÁN ACCOUNT: [id number] : 1980 LOCATION: ER AGE: 41 SEX: F EXAM STATUS: REG ER ORD. PHYSICIAN: DARIUS LAZO MD REASON: fall stairs PROCEDURE: TIBIA FIBULA LEFT XR FOOT_LEFT 3 VIEWS, XR LT TIBIA + FIBULA, XR KNEE _4 VIEWS WITH PATELLA_LT, XR EXAM OF ANKLE_LEFT 3V Clinical Indication: Reason: fall stairs / Spl. Instructions: / History: Comparison: None. Findings: There is no acute fracture of the tibia or fibula. No soft tissue swelling of the calf is identified. There is no acute fracture of the knee. The tricompartmental joint spaces are maintained. The mineralization is normal. There is no joint effusion. Patella in anatomic position. No soft tissue swelling. No patellar tilt or subluxation on the sunrise view. There is no acute fracture of the ankle. The ankle mortise is intact. No soft tissue swelling. No obvious ankle joint effusion. The mineralization is normal. There is no acute fracture or dislocation of the foot. No soft tissue swelling is seen. There is no radiopaque foreign body. The mineralization is normal. The joint spaces are maintained. IMPRESSION: No acute fracture. Electronically signed by: Kevin Zuleta MD (04/09/2021 2:42 AM) [facility] DICTATED AND SIGNED BY: KEVIN ZULETA MD DATE: 04/09/21238 CC: DARIUS LAOZ MD; MICHAEL SMITH ~MTH0 0 Heart Score: C/O Chest Pain: N/A Risk Factors: Risk Factors: DM, Current or recent (<one month) smoker, HTN, HLP, family history of CAD, obesity. Risk Scores: Score 0 - 3: 2.5% MACE over next 6 weeks - Discharge Home Score 4 - 6: 20.3% MACE over next 6 weeks - Admit for Clinical Observation Score 7 - 10: 72.7% MACE over next 6 weeks - Early Invasive Strategies Course & Med Decision Making: Course & Med Decision Making Pertinent Labs and Imaging studies reviewed. (See chart for details) Patient to wear splint. Use crutches. Elevate left knee and ankle. Follow-up with primary care. Follow-up with orthopedics if you do not have an orthopedic follow-up with [facility] Ortho [phone]. Take Tylenol as needed for pain for marked pain may take oxycodone. Return if any concerns. Distal neurovascular intact after application of Andrew splints []Impression: 1. Lt Knee Sprain and contusion 2. Lt. Ankle Sprain and contusion 3. Lt. Foot Sprain and contusion Jerilyn Disclaimer: Jerilyn Disclaimer: This electronic medical record was generated, in whole or in part, using a voice recognition dictation system. Departure Departure: Referrals: MICHAEL SMITH (PCP) Jerilyn Disclaimer This chart was dictated in whole or in part using Voice Recognition software in a busy, high-work load, and often noisy Emergency Department environment. It may contain unintended and wholly unrecognized errors or omissions. DARIUS LAZO MD Apr 09, 2021 01:04
[2021-04-09 01:39] VITALS: BP 135/88
[2021-04-09] MEDS ORDERED: oxyCODONE/APAP 5/325 1 TAB TABLET PO ONE (02:00)
--- NOTE | 2021-04-09 02:44 | RAD ---
XR FOOT_LEFT 3 VIEWS, XR LT TIBIA + FIBULA, XR KNEE _4 VIEWS WITH PATELLA_LT, XR EXAM OF ANKLE_LEFT 3 V Clinical Indication: Reason: fall stairs / Spl. Instructions: / History: Comparison: None. Findings: There is no acute fracture of the tibia or fibula. No soft tissue swelling of the calf is identified. There is no acute fracture of the knee. The tricompartmental joint spaces are maintained. The mineral ization is normal. There is no joint effusion. Patella in anatomic position. No soft tissue swelling. No patellar tilt or subluxation on the sunrise view. There is no acute fracture of the ankle. The ankle mortise is intact. No soft tissue swelling. No obv ious ankle joint effusion. The mineralization is normal. There is no acute fracture or dislocation of the foot. No soft tissue swelling is seen. There is no r adiopaque foreign body. The mineralization is normal. The joint spaces are maintained. IMPRESSION: No acute fracture. Electronically signed by: Kevin Zuleta MD (04/09/2021 2:42 AM) [facility]
== END 2021-04-09 03:17 | disposition home or self-care (01) ==
LOC: ER 00:52
DX: S83.92XA Sprain of unspecified site of left knee, initial encounter (principal); S93.402A Sprain of unspecified ligament of left ankle, initial encounter; S93.602A Unspecified sprain of left foot, initial encounter; G43.909 Migraine, unspecified, not intractable, without status migrainosus; G89.29 Other chronic pain; Z88.6 Allergy status to analgesic agent; Z88.5 Allergy status to narcotic agent; Z88.8 Allergy status to other drugs, medicaments and biological substances; W01.0XXA Fall on same level from slipping, tripping and stumbling without subsequent striking against object, initial encounter; Y93.89 Activity, other specified; Y92.89 Other specified places as the place of occurrence of the external cause; Y99.8 Other external cause status
CPT/HCPCS: 29515; 73564; 73590; 73610; 73630; 81025; 99284